=== PATIENT | female | born 1955 | race Hispanic/Latino ===

== ENCOUNTER → 2018-05-29 | Day surgery (SDC) | payer OTHER ==
[~2018-05-29] MED LIST: ATORVASTATIN CA10 MG PO; CLOTRIMAZOLE-BE15 GM TOP; FARXIGA PO; FENTANYL CITRATE/PF 100MCG/2 ML INJ ONE; FERROCITE324 MG PO; FOLATE PO; FOLIC ACID1 MG PO; GABAPENTIN300 MG PO; GLYBURIDE-METF1 EAC1 PO; JANUVIA100 MG PO; MAGNESIUM500 MG PO; OMEPRAZOLE40 MG PO; PROPOFOL IV EMULSION 10 MG/ML 50 ML VIAL ONE; VITAMIN D35000 UNIT PO; ZETIA10 MG PO
[2018-05-29 10:25] VITALS: BP 124/75
== END | disposition home or self-care (01) ==
LOC: OR 06:11
PROVIDERS: ATTEND Internal Medicine Gastroenterology
DX: D50.9 Iron deficiency anemia, unspecified (principal); K31.819 Angiodysplasia of stomach and duodenum without bleeding; K44.9 Diaphragmatic hernia without obstruction or gangrene; E66.9 Obesity, unspecified; Z71.3 Dietary counseling and surveillance; I10 Essential (primary) hypertension; E11.9 Type 2 diabetes mellitus without complications; Z01.810 Encounter for preprocedural cardiovascular examination; Z79.84 Long term (current) use of oral hypoglycemic drugs; Z68.31 Body mass index [BMI] 31.0-31.9, adult
CPT/HCPCS: 36415; 43235; 43270; 82948; 93005

== ENCOUNTER 2019-06-18 18:16 | Emergency (ER) | payer OTHER ==
[~2019-06-18] VITALS: Ht 154.9 cm; Wt 77.6 kg
[~2019-06-18 18:16] MED LIST changes: -FENTANYL CITRATE/PF 100MCG/2 ML INJ ONE; -PROPOFOL IV EMULSION 10 MG/ML 50 ML VIAL ONE
--- OUTSIDE RECORDS SUMMARY | 2019-06-18 18:19 | XMS REPORT ---
Author Author [facility] Address Unknown Phone Unavailable Care Team Providers Care Cuff Folder Name Role Phone Unavailable Unavailable Problems This patient has no known problems. Allergies, Adverse Reactions, Alerts This patient has no known allergies or adverse reactions. Medications This patient has no known medications. Results Test Description Test Time Test Comments Text Results Atomic Results Result Comments SCR MAMM BILATERAL JUSTO CAD DIGITAL 2019-04-08 09:33:28 - SCR MAMM BILATERAL JUSTO CAD DIGITALBILATERAL DIGITAL SCREENING MAMMOGRAM 3D/2D WITH CAD: 04/08/2019Digital breast tomosynthesis was performed in addition to routine CC and MLO views. Current mammographic images were evaluated by either a [employer] M- Vu or a [employer] ImageChecker CAD (computer aided detection system). Comparison is made to exam dated 02/11/2017 mammogram - [facility]. There are scattered fibroglandular tissues in both breasts. There are benign calcifications in the right breast. There also is a benign calcification in the left breast. No suspicious mass, architectural distortion, malignant type calcification, or lymph node abnormality detected. Breast architecture is stable compared to prior exams.IMPRESSION: BENIGNThere is no mammographic evidence of malignancy. Resume annual screening mammography in one year. Emerson child/corey:04/08/2019 09:33:28 [employer] Treatment Plant Operator: Sadie CABA, [facility]-FWletter sent: BIRADS 1-2 Normal Mammogram BI-RADS: 2 Benign
[2019-06-18] MEDS ORDERED: PANTOPRAZOLE 40 MG 10ML VIAL IV ONE (18:31)
--- NOTE | 2019-06-18 19:11 | Diagnostic Imaging Report ---
EXAMINATION: CHEST SINGLE (PORTABLE) INDICATION: Cough. COMPARISON: None FINDINGS: TUBES and LINES: None. LUNGS: Lungs are hypoinflated. Mild patchy density in the left lung base may represent atelectasis versus less likely developing pneumonia in the proper clinical setting. PLEURA: No pleural effusion or pneumothorax. HEART AND MEDIASTINUM: The cardiomediastinal silhouette is unremarkable. BONES AND SOFT TISSUES: No acute osseous lesion. Soft tissues are unremarkable. UPPER ABDOMEN: No free air under the diaphragm. IMPRESSION: Mild patchy density in the left lung base may represent atelectasis versus less likely developing pneumonia in the proper clinical setting. Signed by: Dr. Minnie Bahena M.D. on 06/18/2019 7:08 PM
[2019-06-18 19:21] LABS: BASOPHILS % 0.3 % (0.0-1.0); EOSINOPHILS % 0.2 % (0.0-6.0); HEMOGLOBIN 7.5 g/dL (12.0-16.0); LYMPHOCYTES # (AUTO) 2.1 (1.0-3.2); LYMPHOCYTES % 21.7 % (18.0-39.1); MEAN CORPUSCULAR HEMOGLOBIN 23.7 pg (28-32); MEAN CORPUSCULAR HGB CONC 26.8 g/dL (31-35); MEAN CORPUSCULAR VOLUME 88.6 fL (81-99); MONOCYTES # (AUTO) 0.6 (0.2-0.8); MONOCYTES % 5.6 % (4.4-11.3); NEUTROPHILS % 71.7 % (38.7-80.0); PLATELET COUNT 235 x10e3/uL (140-360); RED BLOOD COUNT 3.16 x10e6/uL (3.6-5.1); RED CELL DISTRIBUTION WIDTH 14.3 % (11.7-14.4)
[2019-06-18 19:29] LABS: INR 0.9; PARTIAL THROMBOPLASTIN TIME 25.8 seconds (23.8-35.5); PROTHROMBIN TIME 12.6 seconds (11.9-14.5)
[2019-06-18 19:38] LABS: ALANINE AMINOTRANSFERASE 55 IU/L (0-55); ALBUMIN 3.3 g/dL (3.5-5.0); ALBUMIN/GLOBULIN RATIO 0.8 (0.8-2.0); ALKALINE PHOSPHATASE 235 IU/L (40-150); ANION GAP 16.6 mmol/L (8-16); BLOOD UREA NITROGEN 11 mg/dL (7-26); BUN/CREATININE RATIO 14 (6-25); CALCIUM 9.6 mg/dL (8.4-10.2); CARBON DIOXIDE 22 mmol/L (22-29); CHLORIDE 105 mmol/L (98-107); CREATINE KINASE 37 IU/L (29-168); CREATININE, SERUM 0.77 mg/dL (0.57-1.11); EST GLOMERULAR FILTRATION RATE > 60 ML/MIN (60-); GLUCOSE 281 mg/dL (74-118); POTASSIUM 4.6 mmol/L (3.5-5.1); SODIUM 139 mmol/L (136-145)
[2019-06-18 19:55] LABS: BILIRUBIN,URINE NEGATIVE (NEGATIVE); CLARITY,URINE SL CLOUDY (CLEAR); COLOR,URINE YELLOW (YELLOW); KETONES,URINE NEGATIVE (NEGATIVE); LEUKOCYTE ESTERASE ,URINE NEGATIVE (NEGATIVE); NITRITE,URINE NEGATIVE (NEGATIVE); PROTEIN,URINE DIPSTICK NEGATIVE (NEGATIVE); URINE UROBILINOGEN 0.2 mg/dL (0.2 - 1)
[2019-06-18 20:10] LABS: BACTERIA,URINE MANY /HPF; EPITHELIAL CELLS,URINE MODERATE /LPF
[2019-06-18] MEDS ORDERED: FERROUS SULFAT325 MG PO (20:50)
[2019-06-18] MEDS ORDERED: COLACE100 MG PO (20:50)
[2019-06-18 21:24] VITALS: BP 111/58
== END 2019-06-18 21:44 | disposition home or self-care (01) ==
LOC: ER 18:16
DX: D50.0 Iron deficiency anemia secondary to blood loss (chronic) (principal); E11.65 Type 2 diabetes mellitus with hyperglycemia; R53.1 Weakness; E78.5 Hyperlipidemia, unspecified; K21.9 Gastro-esophageal reflux disease without esophagitis
CPT/HCPCS: 36415; 71045; 80053; 81001; 82550; 82553; 83880; 84484; 85025; 85610; 85730; 86850; 86900; 87086; 87186; 93005; 99284; C9113

== ENCOUNTER 2019-06-19 16:56 | Inpatient (IN) | payer OTHER ==
[~2019-06-19] VITALS: Ht 154.9 cm; Wt 77.6 kg
[~2019-06-19 16:56] MED LIST changes: +COLACE100 MG PO; +FERROUS SULFAT325 MG PO; +LIDOCAINE HCL 2% LOCAL INJ 5 ML SDV VIAL INJ ONE; +PROPOFOL IV EMULSION 10 MG/ML 50 ML VIAL ONE
--- NOTE | 2019-06-19 19:00 | NUR ---
DIRECT ADMISSION CAME FROM DR.V QUINTANA'S OFFICE.ASSESSMENT DONE.NO RESP.DISTRESS.NO PAIN VOICED.NC O2 2LITRE STARTED.AAOX4.ORIENTED TO THE UNIT.BED LOCKED AN DIN LOWEST POSITION.PHONE AND CALL LIGHT WITHIN REACH.INSTRUCTED TO CALL FOR ASSISTANCE NEEDED.CONSULTS CALLED.CARRIED OUT THE ORDERS.
[2019-06-19 19:25] VITALS: BP 115/56
[2019-06-19 20:23] LABS: BASOPHILS % 0.2 % (0.0-1.0); EOSINOPHILS # (AUTO) 0.1 (0.0-0.4); EOSINOPHILS % 2.6 % (0.0-6.0); LYMPHOCYTES # (AUTO) 1.7 (1.0-3.2); LYMPHOCYTES % 37.2 % (18.0-39.1); MEAN CORPUSCULAR HEMOGLOBIN 23.6 pg (28-32); MEAN CORPUSCULAR HGB CONC 27.2 g/dL (31-35); MEAN CORPUSCULAR VOLUME 86.8 fL (81-99); MONOCYTES # (AUTO) 0.3 (0.2-0.8); MONOCYTES % 6.5 % (4.4-11.3); NEUTROPHILS # (AUTO) 2.5 (2.1-6.9); NEUTROPHILS % 53.3 % (38.7-80.0); PLATELET COUNT 224 x10e3/uL (140-360); RED BLOOD COUNT 2.88 x10e6/uL (3.6-5.1); RED CELL DISTRIBUTION WIDTH 14.6 % (11.7-14.4)
[2019-06-19 20:30] LABS: HEMOGLOBIN 6.8 g/dL (12.0-16.0)
[2019-06-19 20:33] LABS: INR 0.9; PARTIAL THROMBOPLASTIN TIME 26.9 seconds (23.8-35.5); PROTHROMBIN TIME 12.6 seconds (11.9-14.5)
[2019-06-19 20:40] LABS: ALANINE AMINOTRANSFERASE 45 IU/L (0-55); ALBUMIN 2.9 g/dL (3.5-5.0); ALBUMIN/GLOBULIN RATIO 0.8 (0.8-2.0); ALKALINE PHOSPHATASE 186 IU/L (40-150); ANION GAP 11.4 mmol/L (8-16); BLOOD UREA NITROGEN 12 mg/dL (7-26); BUN/CREATININE RATIO 17 (6-25); CALCIUM 8.9 mg/dL (8.4-10.2); CARBON DIOXIDE 25 mmol/L (22-29); CHLORIDE 105 mmol/L (98-107); CREATININE, SERUM 0.69 mg/dL (0.57-1.11); EST GLOMERULAR FILTRATION RATE > 60 ML/MIN (60-); GLUCOSE 87 mg/dL (74-118); POTASSIUM 3.4 mmol/L (3.5-5.1); SODIUM 138 mmol/L (136-145)
[2019-06-19 20:41] LABS: CHOL/HDL RATIO 2.3 (3.0-3.6)
[2019-06-19] MEDS ORDERED: SODIUM CHLORIDE 0.9% 250ML 250 ML IV ONE (20:45)
[2019-06-19 21:00] VITALS: BP 115/56
[2019-06-19 21:03] LABS: FREE THYROXINE INDEX 1.5438 (1.4-3.8); THYROID STIMULATING HORMONE 1.391 uIU/mL (0.350-4.940)
[2019-06-19] MEDS: CEFTRIAXONE SOD 1 GM/NS 50 ML 50 ML IV SCH (21:10)
[2019-06-19] MEDS: ATORVASTATIN 10 MG TAB PO SCH (21:20)
[2019-06-19 21:52] VITALS: BP 115/56
--- NOTE | 2019-06-19 22:17 | Diagnostic Imaging Report ---
EXAMINATION: CHEST 2 VIEWS INDICATION: Anemia COMPARISON: Chest radiograph 06/18/2019 FINDINGS: PA and lateral views TUBES and LINES: None. LUNGS: Lungs are well inflated. Lungs are clear. There is no evidence of pneumonia or pulmonary edema. PLEURA: No pleural effusion or pneumothorax. HEART AND MEDIASTINUM: The cardiomediastinal silhouette is nonenlarged. Aortic arch calcifications. BONES AND SOFT TISSUES: No acute osseous lesion. Soft tissues are unremarkable. Degenerative changes in the spine. UPPER ABDOMEN: No free air under the diaphragm. IMPRESSION: No acute thoracic radiographic abnormality. Signed by: Paul Jeffries DO on 06/19/2019 10:14 PM
--- NOTE | 2019-06-19 23:00 | NUR ---
V/S STABLE.BLOOD TRANSFUSION STARTED AFTER VERIFY WITH ANOTHER RN .STAYED WITH PT FOR 15 MTS.NO REACTION NOTED.KEEP MONITOR THE PT.
[2019-06-20] VITALS (8 sets, daily range): BP systolic 107–149; BP diastolic 52–75
--- NOTE | 2019-06-20 00:40 | NUR ---
is in the unit to see the patient.received new orders.
[2019-06-20 00:58] LABS: BILIRUBIN,URINE NEGATIVE (NEGATIVE); CLARITY,URINE CLOUDY (CLEAR); COLOR,URINE YELLOW (YELLOW); KETONES,URINE NEGATIVE (NEGATIVE); LEUKOCYTE ESTERASE ,URINE SMALL (NEGATIVE); NITRITE,URINE NEGATIVE (NEGATIVE); PROTEIN,URINE DIPSTICK NEGATIVE (NEGATIVE); URINE UROBILINOGEN 0.2 mg/dL (0.2 - 1)
--- NOTE | 2019-06-20 01:10 | NUR ---
urine collected in aseptic technique and sent to the lab.
[2019-06-20 01:11] LABS: WBC,URINE (MAN) >50 /HPF (0-5)
[2019-06-20 01:12] LABS: BACTERIA,URINE MANY /HPF; EPITHELIAL CELLS,URINE FEW /LPF
--- NOTE | 2019-06-20 02:30 | NUR ---
First unit of blood completed.pt tolerated well.v/s stable.
--- NOTE | 2019-06-20 05:22 | NUR ---
VITAL SIGNS STABLE.SECOND UNITS OF BLOOD STARTED WITH VERIFICATION OF ANOTHER RN.KEEP MONITOR THE PT.
[2019-06-20 05:31] LABS: BASOPHILS % 0.2 % (0.0-1.0); EOSINOPHILS # (AUTO) 0.2 (0.0-0.4); HEMATOCRIT 26.5 % (34.2-44.1); HEMOGLOBIN 7.6 g/dL (12.0-16.0); LYMPHOCYTES # (AUTO) 2.4 (1.0-3.2); LYMPHOCYTES % 45.1 % (18.0-39.1); MEAN CORPUSCULAR HEMOGLOBIN 24.4 pg (28-32); MEAN CORPUSCULAR HGB CONC 28.7 g/dL (31-35); MEAN CORPUSCULAR VOLUME 85.2 fL (81-99); MONOCYTES # (AUTO) 0.4 (0.2-0.8); MONOCYTES % 7.8 % (4.4-11.3); NEUTROPHILS # (AUTO) 2.3 (2.1-6.9); NEUTROPHILS % 43.5 % (38.7-80.0); PLATELET COUNT 212 x10e3/uL (140-360); RED BLOOD COUNT 3.11 x10e6/uL (3.6-5.1); RED CELL DISTRIBUTION WIDTH 15.4 % (11.7-14.4)
--- NOTE | 2019-06-20 07:02 | NUR ---
Bed side shift report given to the oncoming Rn.stable condition.
--- NOTE | 2019-06-20 07:30 | NUR ---
Received patient this morning, a/ox3, PRBC running at this time, no resp distress, call light within reach, will monitor.
[2019-06-20 07:34] LABS: PLATELET ESTIMATE ADEQUATE; PLATELET MORPHOLOGY COMMENT NORMAL; RBC MORPHOLOGY COMMENT ABNORMAL
[2019-06-20 07:35] LABS: ANISOCYTOSIS SLIGHT; HYPOCHROMASIA MODERATE
--- NOTE | 2019-06-20 08:15 | NUR ---
Blood transfusion completed at this time, no reaction noted, VSS and no c/o pains.
[2019-06-20] MEDS: FARXIGA 10MG PO SCH (08:54)
[2019-06-20] MEDS: EZETIMIBE 10 MG TAB PO SCH (08:54)
[2019-06-20] MEDS: METFORMIN HCL 500 MG TAB PO SCH ×2 (08:54→16:53)
[2019-06-20] MEDS: PANTOPRAZOLE 40 MG 10ML VIAL IV SCH ×2 (08:54→16:53)
[2019-06-20] MEDS: FOLIC ACID 1 MG TAB PO SCH (08:54)
[2019-06-20] MEDS: GLYBURIDE 5 MG TAB PO SCH (08:54)
[2019-06-20] MEDS ORDERED: NON-FORMULARY MEDICATION PO SCH (09:00)
[2019-06-20] MEDS ORDERED: FARXIGA 5 MG PO SCH (09:00)
[2019-06-20 10:28] LABS: BASOPHILS % 0.2 % (0.0-1.0); EOSINOPHILS # (AUTO) 0.1 (0.0-0.4); EOSINOPHILS % 2.6 % (0.0-6.0); HEMATOCRIT 30.1 % (34.2-44.1); HEMOGLOBIN 8.6 g/dL (12.0-16.0); LYMPHOCYTES # (AUTO) 1.7 (1.0-3.2); LYMPHOCYTES % 36.2 % (18.0-39.1); MEAN CORPUSCULAR HEMOGLOBIN 24.7 pg (28-32); MEAN CORPUSCULAR HGB CONC 28.6 g/dL (31-35); MEAN CORPUSCULAR VOLUME 86.5 fL (81-99); MONOCYTES # (AUTO) 0.4 (0.2-0.8); MONOCYTES % 7.9 % (4.4-11.3); NEUTROPHILS # (AUTO) 2.4 (2.1-6.9); NEUTROPHILS % 52.9 % (38.7-80.0); PLATELET COUNT 210 x10e3/uL (140-360); RED BLOOD COUNT 3.48 x10e6/uL (3.6-5.1); RED CELL DISTRIBUTION WIDTH 15.1 % (11.7-14.4)
[2019-06-20 10:53] LABS: PLATELET ESTIMATE ADEQUATE; PLATELET MORPHOLOGY COMMENT NORMAL
[2019-06-20 10:54] LABS: HYPOCHROMASIA SLIGHT; RBC MORPHOLOGY COMMENT ABNORMAL
--- NOTE | 2019-06-20 12:00 | NUR ---
Pre-op called asking if patient was ready for procedure, there have not been orders for a procedure entered. Pre-op Nurse will get back to physician for further directions.
--- NOTE | 2019-06-20 13:10 | NUR ---
Call back if patient is ready and patient not ready due to had lunch. Will get back to surgeon
[2019-06-20] MEDS ORDERED: ACETAMINOPHEN 325 MG TAB PO PRN (13:45)
[2019-06-20] MEDS ORDERED: DEXTROSE 50% SYRINGE 50 ML IV PRN (13:45)
[2019-06-20] MEDS ORDERED: LACTULOSE SYRUP 20 GM/30 ML UDC PO NR (14:00)
[2019-06-20] MEDS: INSULIN LISPRO 100 UNIT/1 ML 3ML VIAL SQ SCH ×2 (16:30→20:29)
--- NOTE | 2019-06-20 19:00 | NUR ---
Bed side shift report taken from morning Rn.pt is lyeing in the bed.stable condition.
--- NOTE | 2019-06-20 20:21 | History and Physical ---
PRESENTING COMPLAINT: Epigastric pain with nausea and vomiting, found having critical anemia with generalized weakness. HISTORY OF PRESENT ILLNESS: A 63-year-old female who was admitted from the office of Dr. Shiraz Aquino yesterday. The patient tells that she was seen in the ER at this hospital last week when she had epigastric discomfort. The patient was evaluated at the ER and sent home after evaluation. She had persisting symptoms, for which she went to see Dr. Shiraz Aquino yesterday. The patient was found having critical anemia of 7.1. The patient was directly admitted from his office. The patient tells that she was feeling dizziness with weakness along with these symptoms. She had vomited two times prior to yesterday. Vomitus did not contain any blood. She had dark stool, but denied any episodes of darya bloody stool or black tarry stools. The patient had EGD last year at this hospital by Dr. Pizano. The patient was found having gastric angioectasia and hiatal hernia. Duodenal finding did not show any ulceration at that time. The patient was not on any anticoagulant or antiplatelet medication as per her statement. REVIEW OF SYSTEMS: CONSTITUTIONAL: No fevers, chills, or rigor. The patient felt generalized weakness yesterday. EYE AND ENT: No visual disturbance. No nasal congestion. No earache. CARDIOVASCULAR: No chest pain, shortness of breath, or palpitation. PULMONARY: No cough or hemoptysis. GI: Epigastric discomfort as per HPI. Vomiting 2 times at home. No passage of bloody stool or vomitus and dark stool as per patient's statement. No black stool as per the patient's statement. Last bowel movement 2 days ago. : No hematuria or dysuria. No abnormal vaginal bleeding. MUSCULOSKELETAL/SKIN/LYMPHORETICULAR: No joint pain. No joint swelling. No skin rash. No swelling. NEUROLOGIC: No loss of consciousness, seizure, or headache. The patient felt dizzy yesterday as per her statement. PAST MEDICAL HISTORY: Illnesses: 1. Type 2 diabetes mellitus. 2. Hypertension. 3. Hyperlipidemia. 4. Iron deficiency anemia. 5. Hiatal hernia. 6. Gastric angioectasia. 7. The patient tells that she had a history of lor-UO-qfsduxcsm acute OR about 5 years ago, when she was hospitalized at [facility]. PAST SURGICAL HISTORY: The patient had EGD done last year at this hospital by Dr. Pizano and tonsillectomy in childhood. No other history of surgery. ALLERGIES: NO KNOWN MEDICATION ALLERGY. HOME MEDICATIONS: List includes: 1. Dulcolax suppository p.r.n. 2. Tizanidine 2 mg t.i.d. p.r.n. 3. Maywood-3 capsule b.i.d. 4. Ferrous sulfate 325 mg daily. 5. Voltaren gel every 12 hours. 6. Omeprazole 40 mg daily. 7. Vitamin D 5000 units capsule daily. 8. Folic acid 1 mg daily. 9. Gabapentin 300 mg at bedtime. 10. Zetia 10 mg daily. 11. Acarbose 25 mg t.i.d. 12. Atorvastatin 10 mg at bedtime. 13. Glyburide-metformin 5/500 mg two tablets b.i.d. 14. Farxiga 10 mg daily. 15. Tradjenta 5 mg daily. SOCIAL HISTORY: The patient lives at home at [place] with her boyfriend. She has adult children, total 6. She is not currently working. She used to work in a restaurant in the past. HABITS: Denies smoking, drinking, or substance abuse history. FAMILY HISTORY: The patient's father of COPD complications. Mother is for unknown cause. Her siblings are alive. She is not in contact with them. No family history of GI bleeding as per patient's statement. PHYSICAL EXAMINATION: VITAL SIGNS: Today, BP 107/52, pulse 72, temp 97, respirations 17, SpO2 99% at room air. GENERAL: Alert, not in acute distress now, feeling better than yesterday. HEENT: NC/AT. Mild pallor. No icterus. Oral mucosa moist. NECK: No JVD. No carotid bruit. No lymphadenopathy. No thyromegaly. HEART: S1, S2. Regular. No murmur. LUNGS: Clear to auscultation. ABDOMEN: Soft, nontender. No palpable mass. Bowel sounds active in all quadrants. EXTREMITIES: No edema or cyanosis. NEUROLOGIC: Motor grossly equal on both sides. LABORATORY DATA: CBC; WBC 4.6, hemoglobin 6.8 at presentation, now 8.6, hematocrit 25 and came up to 30 today, MCV 86, RDW 14, platelet 224, neutrophils 53, lymphocytes 37. PT 12.6, INR 0.9, PTT 26.9. Chemistry panel; sodium 138, potassium 3.4, chloride 105, CO2 25, BUN 12, creatinine 0.69, glucose 87, calcium 8.9. Total bilirubin 0.2, AST 52, ALT 45, alkaline phosphatase 186. Total protein 6.6, albumin 2.9, globulin 3.9. Total cholesterol 89, LDL 26, HDL 39, triglycerides 122. Vitamin B12 766. TSH 1.39, free T4 1.54. Urinalysis this presentation negative for protein, glucose, ketone, wbc more than 50, rbc 11-20, bacteria many. MICROBIOLOGICAL DATA: Urine culture in progress. RADIOLOGICAL DATA: X-ray chest single view, no acute abnormality detected. EKG not done. ASSESSMENT AND PLAN: 1. Critical anemia and normocytic. The patient had a similar episode last year when she had an EGD. Continue the patient on PPI. The patient is on Protonix IV and now follow up with Gastroenterology. Dr. Atkinson has evaluated the patient last night. The patient would need an EGD, was not scheduled for today. The patient is started on a clear liquid diet. We would continue clear liquid diet for now. Check stool for occult blood. 2. Hiatal hernia with gastric angiectasia on EGD last year. Follow EGD report. Continue PPI. 3. Diabetes mellitus type 2. Continue her regular medication. Hold metformin for now. 4. Abnormal LFTs. Ask for an ultrasound abdomen when available. 5. Hyperlipidemia. Continue regular medication. 6. History of anj-HQ-uqyudyrbi OR as per patient's statement, was asked for an EKG. The patient does not have any chest pain, or symptoms suggestive of cardiac ailments. Can check troponin I with next lab, was not checked yesterday. 7. DVT prophylaxis. We would hold anticoagulation, encourage ambulation. Discharge plan would depend upon the patient's hospital course and recommendation by the industrial maintenance mechanic. MD ANJALI Garza/HARDIK /[id number]
[2019-06-20] MEDS: GABAPENTIN 300 MG CAP PO SCH (20:29)
[2019-06-20] MEDS: CEFTRIAXONE SOD 1 GM/NS 50 ML 50 ML IV SCH (20:29)
[2019-06-20] MEDS: ATORVASTATIN 10 MG TAB PO SCH (20:56)
[2019-06-20] MEDS ORDERED: ATORVASTATIN 10 MG TAB PO SCH (21:00)
--- NOTE | 2019-06-20 23:28 | NUR ---
DR. Surekha VALENTE DOING ROUNDS. NEW ORDERS RECEIVED FOR LABS IN AM.
[2019-06-21] VITALS (10 sets, daily range): BP systolic 96–136; BP diastolic 53–74
[2019-06-21] MEDS ORDERED: LACTATED RINGER'S 1,000 ML IV ONE (04:30)
--- NOTE | 2019-06-21 05:30 | NUR ---
On npo.new iv started to left hand.patent.stable condition.
[2019-06-21 06:23] LABS: BASOPHILS % 0.2 % (0.0-1.0); EOSINOPHILS # (AUTO) 0.1 (0.0-0.4); EOSINOPHILS % 2.8 % (0.0-6.0); HEMATOCRIT 31.9 % (34.2-44.1); HEMOGLOBIN 9.3 g/dL (12.0-16.0); LYMPHOCYTES % 40.2 % (18.0-39.1); MEAN CORPUSCULAR HEMOGLOBIN 25.1 pg (28-32); MEAN CORPUSCULAR HGB CONC 29.2 g/dL (31-35); MONOCYTES # (AUTO) 0.4 (0.2-0.8); MONOCYTES % 7.9 % (4.4-11.3); NEUTROPHILS # (AUTO) 2.4 (2.1-6.9); NEUTROPHILS % 48.7 % (38.7-80.0); PLATELET COUNT 218 x10e3/uL (140-360); RED BLOOD COUNT 3.71 x10e6/uL (3.6-5.1); RED CELL DISTRIBUTION WIDTH 15.3 % (11.7-14.4)
[2019-06-21 06:45] LABS: ALANINE AMINOTRANSFERASE 44 IU/L (0-55); ALBUMIN 2.8 g/dL (3.5-5.0); ALBUMIN/GLOBULIN RATIO 0.8 (0.8-2.0); ALKALINE PHOSPHATASE 159 IU/L (40-150); ANION GAP 9.4 mmol/L (8-16); BLOOD UREA NITROGEN 7 mg/dL (7-26); BUN/CREATININE RATIO 12 (6-25); CALCIUM 8.8 mg/dL (8.4-10.2); CARBON DIOXIDE 26 mmol/L (22-29); CHLORIDE 106 mmol/L (98-107); CREATININE, SERUM 0.59 mg/dL (0.57-1.11); EST GLOMERULAR FILTRATION RATE > 60 ML/MIN (60-); GLUCOSE 77 mg/dL (74-118); LIPASE 18 U/L (8-78); POTASSIUM 3.4 mmol/L (3.5-5.1); SODIUM 138 mmol/L (136-145)
--- NOTE | 2019-06-21 07:00 | NUR ---
Bed side shift report given to the oncoming Rn.stable condition.
--- NOTE | 2019-06-21 07:00 | NUR ---
RECEIVED PATIENT RESTING IN BED NO SIGNS OF DISTRESS. BED LOW, WHEELS LOCKED, SIDE RAILS X2, CALL LIGHT IN REACH. WILL CONTINUE TO MONITOR PATIENT.
--- NOTE | 2019-06-21 07:11 | NUR ---
PATIENT LEFT FOR EGD AT THIS TIME.
[2019-06-21 07:20] LABS: FERRITIN 39.04 ng/mL (4.63-204.00)
[2019-06-21] MEDS: INSULIN LISPRO 100 UNIT/1 ML 3ML VIAL SQ SCH ×4 (07:30→20:23)
[2019-06-21] MEDS ORDERED: ONDANSETRON HCL INJ 2MG/ML 2ML 2 MG/ML VIAL ONE (08:21)
[2019-06-21] MEDS ORDERED: PANTOPRAZOLE 40 MG 10ML VIAL IV NR (08:30)
[2019-06-21] MEDS ORDERED: GLYCOPYRROLATE 0.2 MG/ML VIAL ONE (08:57)
[2019-06-21] MEDS ORDERED: EZETIMIBE 10 MG TAB PO SCH (09:00)
[2019-06-21] MEDS ORDERED: FOLIC ACID 1 MG TAB PO SCH (09:00)
[2019-06-21] MEDS: FARXIGA 10MG PO SCH (09:00)
--- NOTE | 2019-06-21 09:17 | NUR ---
PATIENT BACK FROM EGD. NO SIGNS OF DISTRESS. VS STABLE. PATIENT COMPLAINT OF FEELING BLOATED. INFORMED PATIENT TO AMBULATE TO HELP PASS GAS. MORNING MEDICATIONS GIVEN. PATIENT NOW ON ADA DIET. WILL CONTINUE TO MONITOR PATIENT.
[2019-06-21] MEDS: SITAGLIPTIN 100 MG TAB PO SCH (10:05)
[2019-06-21] MEDS: FOLIC ACID 1 MG TAB PO SCH (10:05)
[2019-06-21] MEDS: METFORMIN HCL 500 MG TAB PO SCH ×2 (10:05→17:12)
[2019-06-21] MEDS: EZETIMIBE 10 MG TAB PO SCH (10:05)
[2019-06-21] MEDS: GLYBURIDE 5 MG TAB PO SCH (10:05)
[2019-06-21] MEDS ORDERED: SODIUM CHLORIDE 0.9% 250ML 250 ML ONE (10:20)
[2019-06-21] MEDS: IRON SUCROSE 100 MG in SODIUM CHLORIDE 0.9% 100 ML 100 ML IV SCH (10:33)
[2019-06-21] MEDS: PANTOPRAZOL 40MG/SOD CHL 0.9% 50 ML IV SCH ×3 (11:19→19:57)
[2019-06-21] MEDS: SUCRALFATE 1 GM TAB PO SCH ×3 (11:50→20:22)
[2019-06-21] MEDS ORDERED: POTASSIUM CHLORIDE 20 MEQ TAB CR PO NR (13:21)
[2019-06-21] MEDS ORDERED: MIDAZOLAM HCL 2 MG/2 ML VIAL ONE (14:28)
--- NOTE | 2019-06-21 19:00 | NUR ---
Bed side shift report taken from morning RnMikel in the bed.stable condition.no pain voiced.
[2019-06-21] MEDS: GABAPENTIN 300 MG CAP PO SCH (20:22)
[2019-06-21] MEDS: CEFTRIAXONE SOD 1 GM/NS 50 ML 50 ML IV SCH (20:22)
[2019-06-21] MEDS: ATORVASTATIN 10 MG TAB PO SCH (20:22)
--- NOTE | 2019-06-21 22:16 | NUR ---
Assessment done. protonix running 10ml/hr to left hand.bed locked and in lowest position.phone and call light within reach.instructed to call for assistance as needed.
[2019-06-22 00:30] VITALS: BP 119/63
[2019-06-22] MEDS: PANTOPRAZOL 40MG/SOD CHL 0.9% 50 ML IV SCH ×2 (00:57→05:55)
--- NOTE | 2019-06-22 02:57 | Operative Report ---
DATE OF PROCEDURE: 06/21/2019 SURGEON: Kenji Atkinson MD PROCEDURE: Esophagogastroduodenoscopy with fulguration with the APC probe of gastric antral vascular ectasia. INDICATIONS FOR PROCEDURES: Iron deficiency anemia. MEDICATIONS: The patient was done under MAC, please see anesthesiologist's note. PROCEDURE IN DETAIL: With the patient in left lateral decubitus position, a flexible fiberoptic Olympus gastroscope was introduced into the esophagus under direct visualization without any difficulty. Mucosa overlying the distal esophagus revealed some patchy areas of erythema. The scope was then advanced with ease into the stomach, traversing a small sliding hiatal hernia. Gastric antral vascular ectasia type changes were noted in the antrum and watermelon stomach type configuration. The pylorus was of normal contour and shape, it was intubated with ease and the scope was advanced all the way to the second portion of the duodenum. The scope was then withdrawn slowly. Mucosa overlying the proximal second portion and duodenal bulb appeared to be within normal limits. The scope was then withdrawn back into the stomach and retroflexed. Mucosa overlying the fundus and the cardia appeared to be within normal limits. There were some minimal ecstatic vessels noted in the cardia and the fundus. The scope was then straightened out and extensive fulguration of the APC probe was carried out in the antrum. Good hemostasis was obtained. The scope was subsequently withdrawn. The patient tolerated the procedure well. IMPRESSION: 1. Distal esophagitis, mild. 2. Small sliding hiatal hernia. 3. Gastric antral vascular ectasia. Fulguration was carried out with the APC probe. The patient tolerated the procedure well. PLAN: Augment current PPI regimen. We will add Carafate 1 g p.o. a.c. t.i.d. and at bedtime. Follow H and H. Kenji Atkinson [place] [facility] [place][id number] cc: Alaina Aquino Dr.
[2019-06-22 04:58] VITALS: BP 109/61
[2019-06-22 06:12] LABS: BASOPHILS % 0.2 % (0.0-1.0); EOSINOPHILS # (AUTO) 0.1 (0.0-0.4); EOSINOPHILS % 2.1 % (0.0-6.0); HEMATOCRIT 31.5 % (34.2-44.1); LYMPHOCYTES # (AUTO) 1.9 (1.0-3.2); LYMPHOCYTES % 32.8 % (18.0-39.1); MEAN CORPUSCULAR HEMOGLOBIN 24.7 pg (28-32); MEAN CORPUSCULAR HGB CONC 28.6 g/dL (31-35); MEAN CORPUSCULAR VOLUME 86.3 fL (81-99); MONOCYTES # (AUTO) 0.5 (0.2-0.8); MONOCYTES % 7.8 % (4.4-11.3); NEUTROPHILS # (AUTO) 3.3 (2.1-6.9); NEUTROPHILS % 56.9 % (38.7-80.0); PLATELET COUNT 215 x10e3/uL (140-360); RED BLOOD COUNT 3.65 x10e6/uL (3.6-5.1)
[2019-06-22 06:35] LABS: ALANINE AMINOTRANSFERASE 37 IU/L (0-55); ALBUMIN 2.6 g/dL (3.5-5.0); ALBUMIN/GLOBULIN RATIO 0.8 (0.8-2.0); ALKALINE PHOSPHATASE 153 IU/L (40-150); ANION GAP 9.6 mmol/L (8-16); BLOOD UREA NITROGEN 9 mg/dL (7-26); BUN/CREATININE RATIO 14 (6-25); CALCIUM 8.7 mg/dL (8.4-10.2); CARBON DIOXIDE 27 mmol/L (22-29); CHLORIDE 107 mmol/L (98-107); CREATININE, SERUM 0.66 mg/dL (0.57-1.11); EST GLOMERULAR FILTRATION RATE > 60 ML/MIN (60-); GLUCOSE 87 mg/dL (74-118); MAGNESIUM 1.8 MG/DL (1.3-2.1); POTASSIUM 3.6 mmol/L (3.5-5.1); SODIUM 140 mmol/L (136-145)
--- NOTE | 2019-06-22 07:00 | NUR ---
Bed side shift report given to the oncoming Rn.stable condition.
[2019-06-22] MEDS: INSULIN LISPRO 100 UNIT/1 ML 3ML VIAL SQ SCH (07:30)
[2019-06-22 07:54] VITALS: BP 107/61
[2019-06-22] MEDS: FARXIGA 10MG PO SCH (09:00)
[2019-06-22] MEDS: SUCRALFATE 1 GM TAB PO SCH (09:28)
[2019-06-22] MEDS: GLYBURIDE 5 MG TAB PO SCH (09:28)
[2019-06-22] MEDS: IRON SUCROSE 100 MG in SODIUM CHLORIDE 0.9% 100 ML 100 ML IV SCH (09:28)
[2019-06-22] MEDS: FOLIC ACID 1 MG TAB PO SCH (09:29)
[2019-06-22] MEDS: METFORMIN HCL 500 MG TAB PO SCH (09:29)
[2019-06-22] MEDS: EZETIMIBE 10 MG TAB PO SCH (09:29)
[2019-06-22] MEDS: SITAGLIPTIN 100 MG TAB PO SCH (09:29)
[2019-06-22 11:57] VITALS: BP 100/51
--- NOTE | 2019-06-22 12:45 | Diagnostic Imaging Report ---
EXAM: US ABDOMEN COMPLETE DATE: 06/22/2019 12:00 AM INDICATION: Abnormal liver function tests COMPARISON: Abdominal ultrasound of 01/31/2017 TECHNIQUE: Transverse and longitudinal davis scale and color doppler sonographic images of the upper abdomen were obtained. FINDINGS: There is no evidence of fluid or masses seen in the area of clinical concern in the right lower quadrant. LIVER 15.2 cm in the right midclavicular line. Normal echogenicity of the liver with mildly nodular surface contour, no masses. SPLEEN 11.4 cm in maximum diameter. Normal echogenicity, no masses. GALLBLADDER Small amount of sludge in the gallbladder. No gallbladder wall thickening, distension, stone, or pericholecystic fluid. Negative reported sonographic Peacock's sign. Gallbladder wall measures 4 mm BILE DUCTS No intra nor extra-hepatic biliary dilation. Common bile duct measures 6 mm PANCREAS: Visualized portions are normal. RIGHT KIDNEY: 10.2 cm Echogenicity: Normal Collecting System: No hydronephrosis Stones: None Cyst/Mass: 8 x 9 x 6 mm anechoic cyst at the right midpole. LEFT KIDNEY: 10.2 cm Echogenicity: Normal Collecting System: No hydronephrosis Stones: None Cyst/Mass: None VESSELS: Aorta: Visualized portions are within normal size limits Inferior Vena Cava: Visualized portions are normal Main Portal Vein: 1.0 cm, normal size with hepatopetal flow. FREE FLUID: None IMPRESSION: Small amount of sludge in the gallbladder. No sonographic evidence of cholecystitis. Mildly nodular liver surface contour compatible with early cirrhosis. Signed by: Tami Hill MD on 06/22/2019 12:42 PM
--- NOTE | 2019-06-23 01:13 | Discharge Summary ---
This is a 63-year-old female patient, presented with a chest pain, nausea, vomiting, and severe anemia and dizziness. ADMITTING IMPRESSION AND DIAGNOSES: Critical anemia with dizziness, symptomatic anemia with GI bleed and history of gastric arteriovenous malformation, angiectasia, diabetes mellitus, hypertension, hyperlipidemia. HOSPITAL COURSE SUMMARY: The patient was admitted with above diagnoses. The patient was given 2 units of packed RBC. The patient was taken to the EGD. The patient was found to have a gastric antrum angiodysplasia, that was treated with fulguration with a heater probe. The patient was given IV iron and IV Protonix. The patient also had a UTI with Klebsiella pneumoniae. The patient was given IV antibiotics, ceftriaxone. Now upon stabilization, the patient will be discharged home on iron, folic acid, Carafate, Protonix twice a day, and Macrodantin 100 mg twice a day. The patient will be followed up as outpatient. MD KENN Mann/HARDIK /[id number]
== END 2019-06-22 13:49 | disposition home or self-care (01) | DRG 378 ==
LOC: MED/SURG 18:48
PROVIDERS: ADMIT Internal Medicine; ATTEND Internal Medicine
PROC: 30233N1 Transfusion of Nonautologous Red Blood Cells into Peripheral Vein, Percutaneous Approach (ICD-10-PCS; principal; 2019-06-19)
PROC: 0D578ZZ Destruction of Stomach, Pylorus, Via Natural or Artificial Opening Endoscopic (ICD-10-PCS; 2019-06-21)
DX: K31.811 Angiodysplasia of stomach and duodenum with bleeding (principal); N39.0 Urinary tract infection, site not specified; D50.0 Iron deficiency anemia secondary to blood loss (chronic); K46.9 Unspecified abdominal hernia without obstruction or gangrene; E11.9 Type 2 diabetes mellitus without complications; E78.5 Hyperlipidemia, unspecified; I25.2 Old myocardial infarction; R94.5 Abnormal results of liver function studies; M19.90 Unspecified osteoarthritis, unspecified site; K20.9 Esophagitis, unspecified; B96.1 Klebsiella pneumoniae [K. pneumoniae] as the cause of diseases classified elsewhere
CPT/HCPCS: 36415; 43255; 71046; 76700; 80053; 80061; 81001; 82270; 82607; 82728; 82746; 82948; 83036; 83540; 83690; 83735; 83880; 84436; 84443; 84466; 84479; 84484; 85025; 85045; 85610; 85730; 86803; 86850; 86900; 86920; 87040; 87086; 87186; 93005; J0696; J1756; J2001; J2250; J2405; J7050; J7121; P9016

== ENCOUNTER → 2021-01-17 | Day surgery (SDC) | payer MEDICARE ==
[~2021-01-17] MED LIST changes: +DULCOLAX10 MG PR; -LIDOCAINE HCL 2% LOCAL INJ 5 ML SDV VIAL INJ ONE; +OMEGA 3 1,0001 EACH PO; +ONDANSETRON HCL INJ 2MG/ML 2ML 2 MG/ML VIAL ONE; +OR PHACO EYE KIT ONE; +PRECOSE50 MG PO; +PREOP PHACO EYE KIT ONE; -PROPOFOL IV EMULSION 10 MG/ML 50 ML VIAL ONE; +PROPRANOLOL HCL40 MG PO; +TRADJENTA5 MG PO; +TRIAMCINOLONE A15 G2 TOP; +VOLTAREN TOP
[2021-01-17 13:40] VITALS: BP 116/67
== END | disposition home or self-care (01) ==
LOC: OR 11:11
PROVIDERS: ATTEND Ophthalmology
DX: H25.11 Age-related nuclear cataract, right eye (principal); I10 Essential (primary) hypertension; I25.10 Atherosclerotic heart disease of native coronary artery without angina pectoris; I25.2 Old myocardial infarction; E11.9 Type 2 diabetes mellitus without complications; E78.5 Hyperlipidemia, unspecified; Z01.812 Encounter for preprocedural laboratory examination; Z20.822 Contact with and (suspected) exposure to COVID-19; Z79.84 Long term (current) use of oral hypoglycemic drugs
CPT/HCPCS: 36415; 66984; 82948; J2405; U0002; V2787

== ENCOUNTER → 2021-02-14 | Day surgery (SDC) | payer MEDICARE ==
[~2021-02-14] MED LIST changes: -ONDANSETRON HCL INJ 2MG/ML 2ML 2 MG/ML VIAL ONE
[2021-02-14 13:15] VITALS: BP 122/78
== END | disposition home or self-care (01) ==
LOC: OR 11:04
PROVIDERS: ATTEND Ophthalmology
DX: H25.12 Age-related nuclear cataract, left eye (principal); E11.9 Type 2 diabetes mellitus without complications; I25.2 Old myocardial infarction; I25.10 Atherosclerotic heart disease of native coronary artery without angina pectoris; I10 Essential (primary) hypertension; Z79.84 Long term (current) use of oral hypoglycemic drugs
CPT/HCPCS: 36415; 66984; 82948; V2787

== ENCOUNTER → 2021-12-08 | Outpatient (CLI) | payer MEDICARE ==
[~2021-12-08] MED LIST changes: -OR PHACO EYE KIT ONE; -PREOP PHACO EYE KIT ONE
== END ==
LOC: NM 07:37
PROVIDERS: ATTEND Internal Medicine
DX: K80.20 Calculus of gallbladder without cholecystitis without obstruction (principal)
CPT/HCPCS: 78227; A9537

== ENCOUNTER → 2022-05-07 | Outpatient (CLI) | payer MEDICARE | LOC: MAMMO 12:45 | PROVIDERS: ATTEND Internal Medicine | DX: Z12.31 Encounter for screening mammogram for malignant neoplasm of breast (principal); M79.672 Pain in left foot | CPT/HCPCS: 77067 ==

== ENCOUNTER → 2022-12-06 | Outpatient (CLI) | payer MEDICARE | LOC: RAD 08:01 | PROVIDERS: ATTEND Internal Medicine | DX: M75.01 Adhesive capsulitis of right shoulder (principal); R10.10 Upper abdominal pain, unspecified | CPT/HCPCS: 71046 ==

== ENCOUNTER → 2022-12-13 | Outpatient (CLI) | payer MEDICARE | LOC: DX 12:03 | PROVIDERS: ATTEND Internal Medicine | DX: M85.88 Other specified disorders of bone density and structure, other site (principal) | CPT/HCPCS: 77080 ==

== ENCOUNTER → 2023-01-09 | Outpatient (CLI) | payer MEDICARE ==
[~2023-01-09] MED LIST changes: +IOPAMIDOL 370 MG/ML 100 ML INFUS..BTL INJ ONE
[2023-01-09 09:48] LABS: CREATININE, SERUM 0.84 mg/dL (0.57-1.11)
== END ==
LOC: CT 08:46
PROVIDERS: ATTEND Internal Medicine
DX: M75.01 Adhesive capsulitis of right shoulder (principal); K85.80 Other acute pancreatitis without necrosis or infection
CPT/HCPCS: 36415; 73221; 74160; 82565; 84520; Q9967

== ENCOUNTER → 2023-02-06 | Day surgery (SDC) | payer MEDICARE, OTHER ==
[2023-02-05 12:55] LABS: BASOPHILS % 0.4 % (0.0-1.0); EOSINOPHILS # (AUTO) 0.2 (0.0-0.4); EOSINOPHILS % 2.8 % (0.0-6.0); HEMATOCRIT 38.8 % (34.2-44.1); HEMOGLOBIN 12.1 g/dL (12.0-16.0); LYMPHOCYTES # (AUTO) 1.7 (1.0-3.2); LYMPHOCYTES % 31.5 % (18.0-39.1); MEAN CORPUSCULAR HEMOGLOBIN 27.9 pg (28-32); MEAN CORPUSCULAR HGB CONC 31.2 g/dL (31-35); MEAN CORPUSCULAR VOLUME 89.4 fL (81-99); MONOCYTES # (AUTO) 0.4 (0.2-0.8); MONOCYTES % 7.3 % (4.4-11.3); NEUTROPHILS # (AUTO) 3.1 (2.1-6.9); NEUTROPHILS % 57.8 % (38.7-80.0); PLATELET COUNT 195 x10e3/uL (140-360); RED BLOOD COUNT 4.34 x10e6/uL (3.6-5.1); RED CELL DISTRIBUTION WIDTH 12.6 % (11.7-14.4)
[~2023-02-06] MED LIST changes: +EPHEDRINE SULFATE INJ 50 MG/ML VIAL ONE; +FENTANYL CITRATE/PF 100MCG/2 ML INJ ONE; +HYOSCYAMINE SULFATE 0.5 MG/ML INJ ONE; -IOPAMIDOL 370 MG/ML 100 ML INFUS..BTL INJ ONE; +IRON PO; +LACTATED RINGER'S 1,000 ML ONE; +LIDOCAINE HCL 2% LOCAL INJ 5 ML SDV VIAL INJ ONE; +LOSARTAN POTASS25 MG PO; +MELOXICAM7.5 MG PO; +PROPOFOL IV EMULSION 10 MG/ML 20 ML VIAL ONE; +PROPOFOL IV EMULSION 10 MG/ML 50 ML VIAL IV ONE; +PROPOFOL IV EMULSION 50 ML IV ONE
[2023-02-06 16:30] VITALS: BP 112/60; PULSE 66; RESP 16; O2SAT 96
[2023-02-06 17:09] LABS: INR 0.88; PROTHROMBIN TIME 12.4 seconds (11.9-14.5)
[2023-02-06 17:19] LABS: ALBUMIN 3.1 g/dL (3.5-5.0); BILIRUBIN,DIRECT 0.2 mg/dL (0.0-0.5)
== END | disposition home or self-care (01) ==
LOC: OR 10:45
PROVIDERS: ATTEND Internal Medicine Gastroenterology
DX: K29.60 Other gastritis without bleeding (principal); D12.0 Benign neoplasm of cecum; D12.3 Benign neoplasm of transverse colon; D12.5 Benign neoplasm of sigmoid colon; K29.50 Unspecified chronic gastritis without bleeding; K31.A11 Gastric intestinal metaplasia without dysplasia, involving the antrum; K31.819 Angiodysplasia of stomach and duodenum without bleeding; K22.89 Other specified disease of esophagus; K44.9 Diaphragmatic hernia without obstruction or gangrene; K57.30 Diverticulosis of large intestine without perforation or abscess without bleeding; K59.09 Other constipation; K64.8 Other hemorrhoids; Z71.3 Dietary counseling and surveillance; D64.89 Other specified anemias; I10 Essential (primary) hypertension; I25.2 Old myocardial infarction; E78.5 Hyperlipidemia, unspecified; E11.9 Type 2 diabetes mellitus without complications; Z01.812 Encounter for preprocedural laboratory examination; Z79.84 Long term (current) use of oral hypoglycemic drugs; Z79.899 Other long term (current) drug therapy; Z79.1 Long term (current) use of non-steroidal anti-inflammatories (NSAID); Z68.30 Body mass index [BMI] 30.0-30.9, adult
CPT/HCPCS: 36415 ×2; 43239; 43270; 45385; 80076; 82948; 85025; 85610; 88112; 88305; 88312; 88342; C9113; J1980; J2001; J2704 ×2; J3010; J7121; 43235; 45378; 45380; 88300

== ENCOUNTER → 2023-03-07 | Outpatient (CLI) | payer MEDICARE ==
[~2023-03-07] MED LIST changes: -EPHEDRINE SULFATE INJ 50 MG/ML VIAL ONE; -FENTANYL CITRATE/PF 100MCG/2 ML INJ ONE; -HYOSCYAMINE SULFATE 0.5 MG/ML INJ ONE; -LACTATED RINGER'S 1,000 ML ONE; -LIDOCAINE HCL 2% LOCAL INJ 5 ML SDV VIAL INJ ONE; -PROPOFOL IV EMULSION 10 MG/ML 20 ML VIAL ONE; -PROPOFOL IV EMULSION 10 MG/ML 50 ML VIAL IV ONE; -PROPOFOL IV EMULSION 50 ML IV ONE
== END ==
LOC: US 07:35
PROVIDERS: ATTEND Nurse Practitioner
DX: I85.00 Esophageal varices without bleeding (principal)
CPT/HCPCS: 76700

== ENCOUNTER 2023-06-11 09:27 | Inpatient (IN) | payer MEDICARE, OTHER ==
[~2023-06-11] VITALS: Ht 154.9 cm; Wt 77.6 kg
[2023-06-11 09:51] LABS: BASOPHILS % 0.3 % (0.0-1.0); EOSINOPHILS # (AUTO) 0.1 (0.0-0.4); EOSINOPHILS % 2.1 % (0.0-6.0); LYMPHOCYTES # (AUTO) 1.2 (1.0-3.2); LYMPHOCYTES % 21.1 % (18.0-39.1); MEAN CORPUSCULAR HEMOGLOBIN 23.9 pg (28-32); MEAN CORPUSCULAR VOLUME 88.7 fL (81-99); MONOCYTES # (AUTO) 0.4 (0.2-0.8); MONOCYTES % 7.3 % (4.4-11.3); NEUTROPHILS # (AUTO) 3.9 (2.1-6.9); NEUTROPHILS % 68.3 % (38.7-80.0); PLATELET COUNT 291 x10e3/uL (140-360); RED CELL DISTRIBUTION WIDTH 17.1 % (11.7-14.4); WHITE BLOOD COUNT 5.77 x10e3/uL (4.8-10.8)
[2023-06-11 10:04] LABS: HEMOGLOBIN 5.5 g/dL (12.0-16.0)
[2023-06-11 10:05] LABS: HEMATOCRIT 20.4 % (34.2-44.1)
[2023-06-11] MEDS ORDERED: ACETAMINOPHEN 325 MG TAB PO STA (10:05)
[2023-06-11 10:10] LABS: ANION GAP 11.9 mmol/L (8-16); BLOOD UREA NITROGEN 13 mg/dL (7-26); BUN/CREATININE RATIO 18 (6-25); CALCIUM 8.6 mg/dL (8.4-10.2); CARBON DIOXIDE 24 mmol/L (22-29); CHLORIDE 107 mmol/L (98-107); CREATINE KINASE 24 IU/L (29-168); CREATININE, SERUM 0.73 mg/dL (0.57-1.11); GLUCOSE 192 mg/dL (74-118); POTASSIUM 3.9 mmol/L (3.5-5.1); SODIUM 139 mmol/L (136-145)
[2023-06-11] MEDS ORDERED: DIPHENHYDRAMINE HCL INJ 50 MG/ML VIAL IV ONE (10:15)
[2023-06-11] MEDS ORDERED: DEXAMETHASONE SOD PHOS 10 MG/1 ML VIAL IV ONE (10:15)
[2023-06-11] MEDS ORDERED: FAMOTIDINE 20 MG/2 ML VIAL IV ONE (10:15)
[2023-06-11] MEDS ORDERED: SODIUM CHLORIDE 0.9% 250ML 250 ML IV ONE ×2 (10:15→19:30)
[2023-06-11] MEDS ORDERED: FUROSEMIDE INJ 10 MG/ML 2 ML VIAL IV PRN (10:15)
[2023-06-11 10:51] LABS: INFLUENZAE A&B ANTIGEN (RAPID) NEGATIVE (NEGATIVE)
[2023-06-11 10:52] LABS: STREPTOCOCCUS GRP A ANTIGEN NEGATIVE (NEGATIVE)
[2023-06-11 11:30] LABS: CLARITY,URINE CLOUDY (CLEAR); COLOR,URINE YELLOW (YELLOW); KETONES,URINE NEGATIVE (NEGATIVE); LEUKOCYTE ESTERASE ,URINE NEGATIVE (NEGATIVE); NITRITE,URINE POSITIVE (NEGATIVE); PROTEIN,URINE DIPSTICK NEGATIVE (NEGATIVE); URINE UROBILINOGEN 0.2 mg/dL (0.2 - 1)
[2023-06-11 11:32] LABS: BACTERIA,URINE MANY /HPF; EPITHELIAL CELLS,URINE FEW /LPF; RBC,URINE 0-5 /HPF (0-5); WBC,URINE (MAN) >50 /HPF (0-5)
[2023-06-11 12:16] VITALS: PULSE 89; RESP 18; O2SAT 98
[2023-06-11] MEDS ORDERED: LIDOCAINE HCL 2% LOCAL INJ 5 ML SDV VIAL INJ ONE (12:55)
[2023-06-11] MEDS ORDERED: PROPOFOL IV EMULSION 10 MG/ML 20 ML VIAL ONE (12:55)
[2023-06-11] MEDS ORDERED: ETOMIDATE 2 MG/ML 10 ML INJ IV ONE (12:55)
[2023-06-11] MEDS ORDERED: PHENYLEPHRINE HCL 1% 10 MG/ML VIAL ONE (12:55)
[2023-06-11] MEDS ORDERED: METOCLOPRAMIDE HCL 10 MG/2ML VIAL ONE (12:55)
[2023-06-11 16:15] VITALS: BP 107/57; PULSE 79; RESP 19; TEMP 98.5; O2SAT 99
[2023-06-11 17:03] VITALS: BP 107/57; PULSE 71; RESP 19; TEMP 98.4; O2SAT 99
[2023-06-11] MEDS ORDERED: DEXTROSE 50% SYRINGE 50 ML IV PRN (17:15)
[2023-06-11] MEDS: INSULIN REGULAR, HUMAN 100 UNIT/1 ML SQ SCH ×2 (17:27→20:43)
[2023-06-11] MEDS ORDERED: SODIUM CHLORIDE 0.9% 250ML 250 ML ONE (17:44)
[2023-06-11 19:33] LABS: CHOL/HDL RATIO 3.3 (3.0-3.6)
[2023-06-11 19:55] LABS: FERRITIN 11.01 ng/mL (4.63-204.00)
[2023-06-11 20:00] VITALS: BP 119/57; PULSE 79; RESP 18; TEMP 97.2; O2SAT 100
[2023-06-11] MEDS: GABAPENTIN 300 MG CAP PO SCH (20:32)
[2023-06-11] MEDS: ATORVASTATIN 10 MG TAB PO SCH (20:32)
[2023-06-11] MEDS: LOSARTAN POTASSIUM 25 MG TAB PO SCH (20:33)
[2023-06-11 21:00] VITALS: BP 119/57; PULSE 79; RESP 18; TEMP 97.2; O2SAT 100
[2023-06-12] VITALS (8 sets, daily range): BP systolic 92–111; BP diastolic 44–56; PULSE 68–93; RESP 16–18; TEMP 97–98.2; O2SAT 96–99
[2023-06-12] MEDS: FUROSEMIDE INJ 10 MG/ML 2 ML VIAL IV PRN ×2 (00:27→06:37)
[2023-06-12] MEDS ORDERED: SODIUM CHLORIDE 0.9% 250ML 250 ML ONE (01:40)
[2023-06-12] MEDS ORDERED: IOPAMIDOL 370 MG/ML 100 ML INFUS..BTL INJ ONE (06:55)
[2023-06-12 08:36] LABS: BASOPHILS % 0.2 % (0.0-1.0); EOSINOPHILS % 0.4 % (0.0-6.0); HEMATOCRIT 30.4 % (34.2-44.1); HEMOGLOBIN 9.8 g/dL (12.0-16.0); LYMPHOCYTES # (AUTO) 2.2 (1.0-3.2); LYMPHOCYTES % 27.5 % (18.0-39.1); MEAN CORPUSCULAR HEMOGLOBIN 26.8 pg (28-32); MEAN CORPUSCULAR HGB CONC 32.2 g/dL (31-35); MEAN CORPUSCULAR VOLUME 83.1 fL (81-99); MONOCYTES # (AUTO) 0.7 (0.2-0.8); MONOCYTES % 8.1 % (4.4-11.3); NEUTROPHILS # (AUTO) 5.1 (2.1-6.9); NEUTROPHILS % 63.4 % (38.7-80.0); PLATELET COUNT 255 x10e3/uL (140-360); RED BLOOD COUNT 3.66 x10e6/uL (3.6-5.1); WHITE BLOOD COUNT 8.03 x10e3/uL (4.8-10.8)
[2023-06-12 08:59] LABS: ANION GAP 11.7 mmol/L (8-16); CALCIUM 8.7 mg/dL (8.4-10.2); CREATININE, SERUM 0.7 mg/dL (0.57-1.11); POTASSIUM 3.7 mmol/L (3.5-5.1)
[2023-06-12] MEDS: FERROUS SULFATE 325 MG TAB PO SCH (09:30)
[2023-06-12] MEDS: FOLIC ACID 1 MG TAB PO SCH (09:30)
[2023-06-12] MEDS: EZETIMIBE 10 MG TAB PO SCH (09:30)
[2023-06-12] MEDS: INSULIN REGULAR, HUMAN 100 UNIT/1 ML SQ SCH ×4 (09:31→21:00)
[2023-06-12] MEDS ORDERED: ACETAMINOPHEN 325 MG TAB PO PRN (10:15)
[2023-06-12] MEDS: TRAMADOL HCL 50 MG TAB PO PRN (10:34)
[2023-06-12] MEDS: GABAPENTIN 300 MG CAP PO SCH (20:53)
[2023-06-12] MEDS: LOSARTAN POTASSIUM 25 MG TAB PO SCH (20:54)
[2023-06-12] MEDS: ATORVASTATIN 10 MG TAB PO SCH (20:54)
[2023-06-13] VITALS (8 sets, daily range): BP systolic 98–114; BP diastolic 41–72; PULSE 66–88; RESP 16–19; TEMP 97.6–98.5; O2SAT 94–98
[2023-06-13 06:18] LABS: BASOPHILS % 0.2 % (0.0-1.0); EOSINOPHILS # (AUTO) 0.1 (0.0-0.4); EOSINOPHILS % 1.9 % (0.0-6.0); HEMATOCRIT 30.5 % (34.2-44.1); HEMOGLOBIN 9.3 g/dL (12.0-16.0); LYMPHOCYTES # (AUTO) 1.3 (1.0-3.2); LYMPHOCYTES % 20.7 % (18.0-39.1); MEAN CORPUSCULAR HGB CONC 30.5 g/dL (31-35); MEAN CORPUSCULAR VOLUME 85.2 fL (81-99); MONOCYTES # (AUTO) 0.4 (0.2-0.8); MONOCYTES % 6.9 % (4.4-11.3); NEUTROPHILS # (AUTO) 4.3 (2.1-6.9); NEUTROPHILS % 68.7 % (38.7-80.0); PLATELET COUNT 233 x10e3/uL (140-360); RED BLOOD COUNT 3.58 x10e6/uL (3.6-5.1); RED CELL DISTRIBUTION WIDTH 16.1 % (11.7-14.4); WHITE BLOOD COUNT 6.24 x10e3/uL (4.8-10.8)
[2023-06-13 06:58] LABS: ANION GAP 10.6 mmol/L (8-16); CALCIUM 8.5 mg/dL (8.4-10.2); CREATININE, SERUM 0.67 mg/dL (0.57-1.11); POTASSIUM 3.6 mmol/L (3.5-5.1)
[2023-06-13] MEDS: INSULIN REGULAR, HUMAN 100 UNIT/1 ML SQ SCH ×4 (07:30→21:18)
[2023-06-13] MEDS: EZETIMIBE 10 MG TAB PO SCH (09:00)
[2023-06-13] MEDS: FOLIC ACID 1 MG TAB PO SCH (09:00)
[2023-06-13] MEDS: FERROUS SULFATE 325 MG TAB PO SCH (09:00)
[2023-06-13] MEDS ORDERED: FENTANYL CITRATE/PF 100MCG/2 ML INJ ONE (13:39)
[2023-06-13] MEDS ORDERED: ONDANSETRON HCL INJ 2MG/ML 2ML 2 MG/ML VIAL ONE (14:14)
[2023-06-13] MEDS: SUCRALFATE 1 GM TAB PO SCH ×2 (16:34→21:21)
[2023-06-13] MEDS: TRAMADOL HCL 50 MG TAB PO PRN (16:44)
[2023-06-13] MEDS: ATORVASTATIN 10 MG TAB PO SCH (21:21)
[2023-06-13] MEDS: GABAPENTIN 300 MG CAP PO SCH (21:21)
[2023-06-13] MEDS: LOSARTAN POTASSIUM 25 MG TAB PO SCH (21:22)
[2023-06-14 00:48] VITALS: BP 97/45; PULSE 69; RESP 17; TEMP 98.3; O2SAT 94
[2023-06-14 04:51] VITALS: BP 90/49; PULSE 64; RESP 17; TEMP 98.5; O2SAT 96
[2023-06-14 06:10] VITALS: BP 109/55; PULSE 80
[2023-06-14] MEDS ORDERED: PANTOPRAZOLE SO40 MG PO (06:12)
[2023-06-14] MEDS ORDERED: CARAFATE1 GM PO (06:12)
[2023-06-14 06:26] LABS: BASOPHILS % 0.2 % (0.0-1.0); EOSINOPHILS # (AUTO) 0.1 (0.0-0.4); EOSINOPHILS % 2.3 % (0.0-6.0); HEMATOCRIT 31.1 % (34.2-44.1); HEMOGLOBIN 9.5 g/dL (12.0-16.0); LYMPHOCYTES # (AUTO) 1.3 (1.0-3.2); MEAN CORPUSCULAR HEMOGLOBIN 26.6 pg (28-32); MEAN CORPUSCULAR HGB CONC 30.5 g/dL (31-35); MEAN CORPUSCULAR VOLUME 87.1 fL (81-99); MONOCYTES # (AUTO) 0.4 (0.2-0.8); MONOCYTES % 7.6 % (4.4-11.3); NEUTROPHILS # (AUTO) 3.7 (2.1-6.9); NEUTROPHILS % 66.5 % (38.7-80.0); PLATELET COUNT 193 x10e3/uL (140-360); RED BLOOD COUNT 3.57 x10e6/uL (3.6-5.1); RED CELL DISTRIBUTION WIDTH 15.4 % (11.7-14.4); WHITE BLOOD COUNT 5.56 x10e3/uL (4.8-10.8)
[2023-06-14] MEDS ORDERED: SODIUM CHLORIDE 0.9% 500ML 500 ML IV ONE (06:30)
[2023-06-14] MEDS: FERROUS SULFATE 325 MG TAB PO SCH (08:30)
[2023-06-14] MEDS: FOLIC ACID 1 MG TAB PO SCH (08:30)
[2023-06-14] MEDS: SUCRALFATE 1 GM TAB PO SCH (08:30)
[2023-06-14] MEDS: EZETIMIBE 10 MG TAB PO SCH (08:30)
[2023-06-14] MEDS: INSULIN REGULAR, HUMAN 100 UNIT/1 ML SQ SCH (08:34)
[2023-06-14 08:51] VITALS: BP 119/53; PULSE 85; RESP 19; TEMP 98.9; O2SAT 96
== END 2023-06-14 09:33 | disposition home or self-care (01) | DRG 812 ==
LOC: ER 09:40 → ERHOLD 11:01 → MED/SURG2 13:32
PROVIDERS: ADMIT Internal Medicine; ATTEND Internal Medicine
PROC: 30233N1 Transfusion of Nonautologous Red Blood Cells into Peripheral Vein, Percutaneous Approach (ICD-10-PCS; principal; 2023-06-11)
PROC: 0DB68ZX Excision of Stomach, Via Natural or Artificial Opening Endoscopic, Diagnostic (ICD-10-PCS; 2023-06-13)
PROC: 0DB38ZX Excision of Lower Esophagus, Via Natural or Artificial Opening Endoscopic, Diagnostic (ICD-10-PCS; 2023-06-13 13:20)
DX: D50.9 Iron deficiency anemia, unspecified (principal); N39.0 Urinary tract infection, site not specified; K31.819 Angiodysplasia of stomach and duodenum without bleeding; K44.9 Diaphragmatic hernia without obstruction or gangrene; I25.10 Atherosclerotic heart disease of native coronary artery without angina pectoris; E11.9 Type 2 diabetes mellitus without complications; E78.5 Hyperlipidemia, unspecified; K21.9 Gastro-esophageal reflux disease without esophagitis; R53.83 Other fatigue; R53.1 Weakness; Z87.440 Personal history of urinary (tract) infections; Z79.899 Other long term (current) drug therapy; Z20.822 Contact with and (suspected) exposure to COVID-19
CPT/HCPCS: 0223U; 36415; 43235; 43255; 71046; 74174; 80048; 80061; 81001; 82550; 82607; 82728; 82948; 83036; 83518; 83540; 84466; 84484; 85025; 86850; 86900; 86920; 87070; 87400; 88305; 93005; 94799; 96372; 99284; J1100; J1200; J1940; J2001; J2371; J2405; J2765; J7040; J7050; P9016; Q9967

== ENCOUNTER 2024-03-18 15:22 | Inpatient (IN) | payer MEDICARE, OTHER ==
[~2024-03-18] VITALS: Ht 154.9 cm; Wt 72.6 kg
[~2024-03-18 15:22] MED LIST changes: +CARAFATE1 GM PO; +NITROFURANTOIN100 MG PO; +PANTOPRAZOLE SO40 MG PO; +SERTRALINE HCL50 MG PO; +VITAMIN D3 COM1 EACH PO; +[UNRECOGNIZED DRUG - OTHER] PO
[2024-03-18 15:35] VITALS: PULSE 99; RESP 18; TEMP 98.7
[2024-03-18 16:11] LABS: BASOPHILS % 0.2 % (0.0-1.0); EOSINOPHILS # (AUTO) 0.1 (0.0-0.4); EOSINOPHILS % 2.3 % (0.0-6.0); HEMATOCRIT 23.5 % (34.2-44.1); HEMOGLOBIN 6.2 g/dL (12.0-16.0); LYMPHOCYTES # (AUTO) 1.3 (1.0-3.2); MEAN CORPUSCULAR HEMOGLOBIN 26.8 pg (28-32); MEAN CORPUSCULAR HGB CONC 26.4 g/dL (31-35); MEAN CORPUSCULAR VOLUME 101.7 fL (81-99); MONOCYTES # (AUTO) 0.4 (0.2-0.8); MONOCYTES % 8.1 % (4.4-11.3); NEUTROPHILS # (AUTO) 2.5 (2.1-6.9); NEUTROPHILS % 57.9 % (38.7-80.0); PLATELET COUNT 262 x10e3/uL (140-360); RED BLOOD COUNT 2.31 x10e6/uL (3.6-5.1); RED CELL DISTRIBUTION WIDTH 13.8 % (11.7-14.4); WHITE BLOOD COUNT 4.32 x10e3/uL (4.8-10.8)
[2024-03-18 16:19] LABS: INR 0.81; PROTHROMBIN TIME 11.8 seconds (11.9-14.5)
[2024-03-18 16:28] LABS: ALBUMIN 3.1 g/dL (3.5-5.0); ALBUMIN/GLOBULIN RATIO 0.8 (0.8-2.0); ANION GAP 14.9 mmol/L (8-16); BILIRUBIN,TOTAL 0.3 mg/dL (0.2-1.2); CALCIUM 8.7 mg/dL (8.4-10.2); CREATININE, SERUM 0.76 mg/dL (0.57-1.11); POTASSIUM 3.9 mmol/L (3.5-5.1); TOTAL PROTEIN 6.8 g/dL (6.5-8.1)
[2024-03-18] MEDS ORDERED: BENZONATATE 100 MG CAP PO PRN (16:45)
[2024-03-18] MEDS ORDERED: ACETAMINOPHEN 325 MG TAB PO PRN (16:45)
[2024-03-18] MEDS ORDERED: DIPHENHYDRAMINE HCL 25 MG CAP PO PRN (16:45)
[2024-03-18] MEDS ORDERED: LIDOCAINE 4% PATCH TP PRN (16:45)
[2024-03-18] MEDS ORDERED: SIMETHICONE 80 MG CHEW PO PRN (16:45)
[2024-03-18] MEDS ORDERED: DOCUSATE SODIUM 100 MG CAP PO PRN (16:45)
[2024-03-18] MEDS ORDERED: DEXTROSE 50% SYRINGE 50 ML IV PRN ×2 (16:45→17:15)
[2024-03-18] MEDS ORDERED: HYDRALAZINE HCL 20 MG/ML VIAL IV PRN (16:45)
[2024-03-18] MEDS ORDERED: POTASSIUM CHLORIDE 20 MEQ TAB CR PO PRN (16:45)
[2024-03-18] MEDS ORDERED: ALBUTEROL/IPRATROPIUM 3 ML NEB NEB PRN (16:45)
[2024-03-18] MEDS ORDERED: SODIUM CHLORIDE 0.9% 250ML 250 ML IV ONE (17:15)
[2024-03-18] MEDS: SODIUM CHLORIDE 0.9% 1000ML 1,000 ML IV SCH (18:04)
[2024-03-18] MEDS: INSULIN LISPRO 100 UNIT/1 ML 3ML VIAL SQ SCH (21:00)
[2024-03-18 22:27] VITALS: PULSE 96; RESP 16; O2SAT 99
[2024-03-19] MEDS ORDERED: SODIUM CHLORIDE 0.9% 250ML 250 ML ONE ×2 (01:25→04:31)
[2024-03-19] MEDS ORDERED: PANTOPRAZOLE SOD 40 MG TABEC PO SCH (07:30)
[2024-03-19 07:42] VITALS: BP 100/50; PULSE 82; RESP 20; TEMP 97.6; TEMP 98; O2SAT 100
[2024-03-19 08:05] VITALS: PULSE 85; RESP 16; O2SAT 100
[2024-03-19 10:19] LABS: BASOPHILS % 0.2 % (0.0-1.0); EOSINOPHILS # (AUTO) 0.1 (0.0-0.4); EOSINOPHILS % 3.2 % (0.0-6.0); HEMATOCRIT 28.7 % (34.2-44.1); HEMOGLOBIN 8.2 g/dL (12.0-16.0); LYMPHOCYTES # (AUTO) 1.3 (1.0-3.2); LYMPHOCYTES % 30.2 % (18.0-39.1); MEAN CORPUSCULAR HEMOGLOBIN 27.6 pg (28-32); MEAN CORPUSCULAR HGB CONC 28.6 g/dL (31-35); MEAN CORPUSCULAR VOLUME 96.6 fL (81-99); MONOCYTES # (AUTO) 0.3 (0.2-0.8); MONOCYTES % 6.1 % (4.4-11.3); NEUTROPHILS # (AUTO) 2.6 (2.1-6.9); NEUTROPHILS % 59.6 % (38.7-80.0); PLATELET COUNT 207 x10e3/uL (140-360); RED BLOOD COUNT 2.97 x10e6/uL (3.6-5.1); RED CELL DISTRIBUTION WIDTH 16.4 % (11.7-14.4)
[2024-03-19 10:35] LABS: ANION GAP 12.2 mmol/L (8-16); CALCIUM 8.3 mg/dL (8.4-10.2); CREATININE, SERUM 0.66 mg/dL (0.57-1.11); POTASSIUM 4.2 mmol/L (3.5-5.1)
[2024-03-19] MEDS ORDERED: LIDOCAINE HCL 2% LOCAL INJ 5 ML SDV VIAL INJ ONE (12:09)
[2024-03-19] MEDS ORDERED: PROPOFOL IV EMULSION 10 MG/ML 20 ML VIAL ONE (12:09)
[2024-03-19] MEDS: ONDANSETRON HCL INJ 2MG/ML 2ML 2 MG/ML VIAL IV PRN (15:19)
[2024-03-19 16:03] VITALS: BP 105/54; PULSE 63; RESP 17; TEMP 99.2; O2SAT 100
[2024-03-19 19:40] VITALS: PULSE 69; RESP 16; O2SAT 96
[2024-03-19 20:00] VITALS: BP 120/60; PULSE 67; RESP 18; TEMP 98; O2SAT 97
[2024-03-19 20:33] VITALS: BP 105/54; PULSE 69; RESP 16; TEMP 99.2; O2SAT 96
[2024-03-19] MEDS: MELATONIN 5 MG TABLET PO PRN (21:16)
[2024-03-20] VITALS (10 sets, daily range): BP systolic 95–110; BP diastolic 44–68; PULSE 69–79; RESP 16–18; TEMP 97.9–99.4; O2SAT 96–98
[2024-03-20 06:00] LABS: BASOPHILS % 0.2 % (0.0-1.0); EOSINOPHILS # (AUTO) 0.1 (0.0-0.4); EOSINOPHILS % 2.1 % (0.0-6.0); HEMATOCRIT 29.5 % (34.2-44.1); HEMOGLOBIN 8.4 g/dL (12.0-16.0); LYMPHOCYTES # (AUTO) 1.3 (1.0-3.2); LYMPHOCYTES % 26.3 % (18.0-39.1); MEAN CORPUSCULAR HEMOGLOBIN 27.4 pg (28-32); MEAN CORPUSCULAR HGB CONC 28.5 g/dL (31-35); MEAN CORPUSCULAR VOLUME 96.1 fL (81-99); MONOCYTES # (AUTO) 0.4 (0.2-0.8); MONOCYTES % 7.5 % (4.4-11.3); NEUTROPHILS # (AUTO) 3.1 (2.1-6.9); NEUTROPHILS % 63.5 % (38.7-80.0); PLATELET COUNT 206 x10e3/uL (140-360); RED BLOOD COUNT 3.07 x10e6/uL (3.6-5.1); RED CELL DISTRIBUTION WIDTH 16.1 % (11.7-14.4); WHITE BLOOD COUNT 4.82 x10e3/uL (4.8-10.8)
[2024-03-20 06:21] LABS: ANION GAP 9.9 mmol/L (8-16); CALCIUM 8.3 mg/dL (8.4-10.2); CREATININE, SERUM 0.65 mg/dL (0.57-1.11); POTASSIUM 3.9 mmol/L (3.5-5.1)
[2024-03-20] MEDS ORDERED: IOPAMIDOL 370 MG/ML 100 ML INFUS..BTL INJ ONE (11:44)
[2024-03-20] MEDS: SUCRALFATE 1 GM TAB PO SCH (16:32)
[2024-03-21] VITALS (7 sets, daily range): BP systolic 96–116; BP diastolic 47–63; PULSE 62–89; RESP 16–20; TEMP 98.1–99.4; O2SAT 97–99
[2024-03-21 05:52] LABS: BASOPHILS % 0.2 % (0.0-1.0); EOSINOPHILS # (AUTO) 0.1 (0.0-0.4); EOSINOPHILS % 2.6 % (0.0-6.0); HEMATOCRIT 29.3 % (34.2-44.1); HEMOGLOBIN 8.3 g/dL (12.0-16.0); LYMPHOCYTES # (AUTO) 1.3 (1.0-3.2); LYMPHOCYTES % 27.9 % (18.0-39.1); MEAN CORPUSCULAR HEMOGLOBIN 27.4 pg (28-32); MEAN CORPUSCULAR HGB CONC 28.3 g/dL (31-35); MEAN CORPUSCULAR VOLUME 96.7 fL (81-99); MONOCYTES # (AUTO) 0.3 (0.2-0.8); NEUTROPHILS # (AUTO) 2.9 (2.1-6.9); NEUTROPHILS % 61.9 % (38.7-80.0); PLATELET COUNT 196 x10e3/uL (140-360); RED BLOOD COUNT 3.03 x10e6/uL (3.6-5.1); RED CELL DISTRIBUTION WIDTH 14.9 % (11.7-14.4)
[2024-03-21 06:17] LABS: CALCIUM 8.8 mg/dL (8.4-10.2); CREATININE, SERUM 0.68 mg/dL (0.57-1.11); POTASSIUM 4.1 mmol/L (3.5-5.1)
[2024-03-21 06:24] LABS: ANION GAP 5.1 mmol/L (8-16)
[2024-03-21] MEDS ORDERED: PANTOPRAZOLE SO40 MG PO (18:22)
== END 2024-03-21 18:55 | disposition home or self-care (01) | DRG 811 ==
LOC: ER 16:47 → ERHOLD 16:50 → MED/SURG3 17:38
PROVIDERS: ADMIT Internal Medicine; ATTEND Internal Medicine
PROC: 0D578ZZ Destruction of Stomach, Pylorus, Via Natural or Artificial Opening Endoscopic (ICD-10-PCS; principal; 2024-03-19 13:36)
PROC: 30233N1 Transfusion of Nonautologous Red Blood Cells into Peripheral Vein, Percutaneous Approach (ICD-10-PCS; 2024-03-19 13:36)
DX: D50.0 Iron deficiency anemia secondary to blood loss (chronic) (principal); K31.811 Angiodysplasia of stomach and duodenum with bleeding; K76.6 Portal hypertension; K21.9 Gastro-esophageal reflux disease without esophagitis; K44.9 Diaphragmatic hernia without obstruction or gangrene; K74.60 Unspecified cirrhosis of liver; R59.0 Localized enlarged lymph nodes; I10 Essential (primary) hypertension; E78.5 Hyperlipidemia, unspecified; E11.9 Type 2 diabetes mellitus without complications; Z79.84 Long term (current) use of oral hypoglycemic drugs; Z11.52 Encounter for screening for COVID-19; Z79.899 Other long term (current) drug therapy
CPT/HCPCS: 36415; 43239; 43270; 71045; 74177; 80048; 80053; 82948; 85025; 85610; 85730; 86850; 86900; 86920; 94799; 99252; 99284; J2001; J2405; J2470; J7030; J7050; P9016; Q9967; U0002

== ENCOUNTER → 2024-07-07 | Outpatient (REF) | payer MEDICARE ==
[~2024-07-07] MED LIST changes: +VOLTAREN ARTHRI20 GM TOP
[2024-07-07 10:30] LABS: BASOPHILS % 0.4 % (0.0-1.0); EOSINOPHILS # (AUTO) 0.1 (0.0-0.4); EOSINOPHILS % 2.5 % (0.0-6.0); HEMATOCRIT 30.2 % (34.2-44.1); HEMOGLOBIN 8.3 g/dL (12.0-16.0); LYMPHOCYTES # (AUTO) 1.3 (1.0-3.2); LYMPHOCYTES % 26.4 % (18.0-39.1); MEAN CORPUSCULAR HEMOGLOBIN 29.3 pg (28-32); MEAN CORPUSCULAR HGB CONC 27.5 g/dL (31-35); MEAN CORPUSCULAR VOLUME 106.7 fL (81-99); MONOCYTES # (AUTO) 0.4 (0.2-0.8); MONOCYTES % 7.5 % (4.4-11.3); NEUTROPHILS % 62.4 % (38.7-80.0); PLATELET COUNT 197 x10e3/uL (140-360); RED BLOOD COUNT 2.83 x10e6/uL (3.6-5.1); RED CELL DISTRIBUTION WIDTH 13.7 % (11.7-14.4); WHITE BLOOD COUNT 4.78 x10e3/uL (4.8-10.8)
== END ==
LOC: LAB 10:22
PROVIDERS: ATTEND Internal Medicine Gastroenterology
DX: E11.9 Type 2 diabetes mellitus without complications (principal); K31.819 Angiodysplasia of stomach and duodenum without bleeding; K44.9 Diaphragmatic hernia without obstruction or gangrene; K21.9 Gastro-esophageal reflux disease without esophagitis; D50.0 Iron deficiency anemia secondary to blood loss (chronic); Z68.29 Body mass index [BMI] 29.0-29.9, adult; Z71.3 Dietary counseling and surveillance; Z78.9 Other specified health status; Z86.0100 Personal history of colon polyps, unspecified
CPT/HCPCS: 36415; 85025

== ENCOUNTER 2024-09-29 19:14 | Emergency (ER) | payer MEDICARE, OTHER ==
[~2024-09-29] VITALS: Ht 154.9 cm; Wt 70.8 kg
[~2024-09-29 19:14] MED LIST changes: +SUCRALFATE1 GM PO; +VITAMIN C500 MG PO
[2024-09-29] MEDS: ONDANSETRON HCL 4 MG ORAL DISINTEGRATING TAB PO ONE (19:34)
[2024-09-29 19:35] VITALS: TEMP 99
[2024-09-29] MEDS: TRAMADOL HCL 50 MG TAB PO ONE (19:37)
[2024-09-29 22:31] VITALS: PULSE 80; RESP 16
[2024-09-29] MEDS ORDERED: ULTRAM 50MG50 MG PO (22:31)
[2024-09-29] MEDS ORDERED: ONDANSETRON ODT4 MG SL (22:31)
[2024-09-29 22:40] VITALS: BP 121/55; PULSE 82; RESP 15; TEMP 98; O2SAT 98
== END 2024-09-29 22:43 | disposition home or self-care (01) ==
LOC: ER 19:20
DX: R07.89 Other chest pain (principal); K74.60 Unspecified cirrhosis of liver; V43.52XA Car driver injured in collision with other type car in traffic accident, initial encounter; Y92.488 Other paved roadways as the place of occurrence of the external cause; I10 Essential (primary) hypertension; E11.9 Type 2 diabetes mellitus without complications; D64.9 Anemia, unspecified; E78.5 Hyperlipidemia, unspecified; K21.9 Gastro-esophageal reflux disease without esophagitis
CPT/HCPCS: 71250; 99283; Q0162

== ENCOUNTER 2024-10-02 16:00 | Observation (INO) | payer MEDICARE ==
[~2024-10-02] VITALS: Ht 154.9 cm; Wt 70.8 kg
[~2024-10-02 16:00] MED LIST changes: +ONDANSETRON ODT4 MG SL; +ULTRAM 50MG50 MG PO
[2024-10-02 19:00] VITALS: BP 126/56; PULSE 94; RESP 18; TEMP 98.1; O2SAT 99
[2024-10-02 19:50] VITALS: PULSE 88; RESP 18; O2SAT 98
[2024-10-02 20:00] VITALS: BP 126/56; PULSE 94; RESP 18; TEMP 98.1; O2SAT 100
[2024-10-02 21:26] LABS: BASOPHILS % 0.2 % (0.0-1.0); EOSINOPHILS # (AUTO) 0.2 (0.0-0.4); EOSINOPHILS % 2.8 % (0.0-6.0); LYMPHOCYTES # (AUTO) 2.5 (1.0-3.2); LYMPHOCYTES % 43.1 % (18.0-39.1); MEAN CORPUSCULAR HEMOGLOBIN 26.6 pg (28-32); MEAN CORPUSCULAR VOLUME 98.7 fL (81-99); MONOCYTES # (AUTO) 0.4 (0.2-0.8); MONOCYTES % 7.2 % (4.4-11.3); NEUTROPHILS # (AUTO) 2.7 (2.1-6.9); NEUTROPHILS % 46.4 % (38.7-80.0); PLATELET COUNT 207 x10e3/uL (140-360); RED BLOOD COUNT 2.33 x10e6/uL (3.6-5.1); RED CELL DISTRIBUTION WIDTH 14.7 % (11.7-14.4)
[2024-10-02 21:31] LABS: HEMOGLOBIN 6.2 g/dL (12.0-16.0)
[2024-10-02 21:57] LABS: ALBUMIN/GLOBULIN RATIO 0.8 (0.8-2.0); ANION GAP 14.6 mmol/L (8-16); BILIRUBIN,TOTAL 0.4 mg/dL (0.2-1.2); CREATININE, SERUM 0.72 mg/dL (0.57-1.11); POTASSIUM 3.6 mmol/L (3.5-5.1); TOTAL PROTEIN 6.9 g/dL (6.5-8.1)
[2024-10-02 22:16] LABS: FERRITIN 23.87 ng/mL (4.63-204.00)
[2024-10-02 22:29] LABS: INR 0.85; PROTHROMBIN TIME 12.2 seconds (11.9-14.5)
[2024-10-02 23:53] VITALS: BP 126/56; PULSE 94; RESP 18; TEMP 98.1; O2SAT 100
[2024-10-03] VITALS (12 sets, daily range): BP systolic 99–121; BP diastolic 45–58; PULSE 75–91; RESP 16–18; TEMP 97.6–98.7; O2SAT 96–100
[2024-10-03] MEDS: SODIUM CHLORIDE 0.9% 1000ML 1,000 ML IV SCH (04:08)
[2024-10-03 04:45] LABS: ANISOCYTOSIS MODERATE; HYPOCHROMASIA MODERATE; MICROCYTOSIS SLIGHT; OVALOCYTES MODERATE; POIKILOCYTOSIS MODERATE
[2024-10-03 04:46] LABS: PLATELET ESTIMATE ADEQUATE; PLATELET MORPHOLOGY COMMENT NORMAL; POLYCHROMASIA MODERATE; RBC MORPHOLOGY COMMENT ABNORMAL; STOMATOCYTES MODERATE
[2024-10-03 07:21] LABS: CLARITY,URINE CLEAR (CLEAR); COLOR,URINE YELLOW (YELLOW)
[2024-10-03 07:22] LABS: BILIRUBIN,URINE NEGATIVE (NEGATIVE); GLUCOSE, URINE NEGATIVE (NEGATIVE); KETONES,URINE NEGATIVE (NEGATIVE); LEUKOCYTE ESTERASE ,URINE SMALL (NEGATIVE); NITRITE,URINE POSITIVE (NEGATIVE); PH,URINE 5.5 (5 - 7); PROTEIN,URINE DIPSTICK NEGATIVE (NEGATIVE); URINE UROBILINOGEN 1 mg/dL (0.2 - 1)
[2024-10-03 07:33] LABS: BACTERIA,URINE MANY /HPF; EPITHELIAL CELLS,URINE FEW /LPF; RBC,URINE 0-5 /HPF (0-5); WBC,URINE (MAN) >50 /HPF (0-5)
[2024-10-03] MEDS: METFORMIN HCL 500 MG TAB PO SCH (08:00)
[2024-10-03] MEDS: GLIPIZIDE 5 MG TAB PO SCH (08:00)
[2024-10-03] MEDS ORDERED: NON-FORMULARY MEDICATION (Linagliptin (Tradjenta) 5 MG) PO SCH (09:00)
[2024-10-03] MEDS ORDERED: NON-FORMULARY MEDICATION ([Farxiga] 10 MG) PO SCH (09:00)
[2024-10-03] MEDS: LOSARTAN POTASSIUM 25 MG TAB PO SCH (09:00)
[2024-10-03] MEDS: SERTRALINE HCL 50 MG TAB PO SCH (09:35)
[2024-10-03] MEDS: FERROUS SULFATE 325 MG TAB PO SCH (09:35)
[2024-10-03] MEDS: EZETIMIBE 10 MG TAB PO SCH (09:36)
[2024-10-03] MEDS: FOLIC ACID 1 MG TAB PO SCH (09:36)
[2024-10-03] MEDS ORDERED: HYDRALAZINE HCL 20 MG/ML VIAL IV PRN (09:45)
[2024-10-03] MEDS ORDERED: POTASSIUM CHLORIDE 20 MEQ TAB CR PO PRN (09:45)
[2024-10-03] MEDS ORDERED: SIMETHICONE 80 MG CHEW PO PRN (09:45)
[2024-10-03] MEDS ORDERED: ACETAMINOPHEN 325 MG TAB PO PRN (09:45)
[2024-10-03] MEDS ORDERED: DIPHENHYDRAMINE HCL 25 MG CAP PO PRN (09:45)
[2024-10-03] MEDS ORDERED: LIDOCAINE 4% PATCH TP PRN (09:45)
[2024-10-03] MEDS ORDERED: DEXTROSE 50% SYRINGE 50 ML IV PRN ×2 (09:45)
[2024-10-03] MEDS ORDERED: BENZONATATE 100 MG CAP PO PRN (09:45)
[2024-10-03] MEDS ORDERED: ONDANSETRON HCL INJ 2MG/ML 2ML 2 MG/ML VIAL IV PRN (09:45)
[2024-10-03] MEDS ORDERED: DOCUSATE SODIUM 100 MG CAP PO PRN (09:45)
[2024-10-03] MEDS ORDERED: ALBUTEROL/IPRATROPIUM 3 ML NEB NEB PRN (09:45)
[2024-10-03 10:47] LABS: BASOPHILS % 0.4 % (0.0-1.0); EOSINOPHILS # (AUTO) 0.2 (0.0-0.4); EOSINOPHILS % 3.3 % (0.0-6.0); HEMATOCRIT 27.2 % (34.2-44.1); HEMOGLOBIN 8.2 g/dL (12.0-16.0); LYMPHOCYTES # (AUTO) 1.2 (1.0-3.2); LYMPHOCYTES % 26.9 % (18.0-39.1); MEAN CORPUSCULAR HGB CONC 30.1 g/dL (31-35); MEAN CORPUSCULAR VOLUME 92.8 fL (81-99); MONOCYTES # (AUTO) 0.3 (0.2-0.8); MONOCYTES % 7.4 % (4.4-11.3); NEUTROPHILS # (AUTO) 2.8 (2.1-6.9); NEUTROPHILS % 61.1 % (38.7-80.0); PLATELET COUNT 189 x10e3/uL (140-360); RED BLOOD COUNT 2.93 x10e6/uL (3.6-5.1); RED CELL DISTRIBUTION WIDTH 15.3 % (11.7-14.4); WHITE BLOOD COUNT 4.61 x10e3/uL (4.8-10.8)
[2024-10-03] MEDS: INSULIN LISPRO 100 UNIT/1 ML 3ML VIAL SQ SCH (11:30)
[2024-10-03] MEDS ORDERED: MELATONIN 5 MG TABLET PO PRN (21:00)
[2024-10-04] VITALS (11 sets, daily range): BP systolic 99–118; BP diastolic 41–51; PULSE 60–85; RESP 17–18; TEMP 97.8–98.3; O2SAT 95–100
[2024-10-04 06:07] LABS: BASOPHILS % 0.2 % (0.0-1.0); EOSINOPHILS # (AUTO) 0.2 (0.0-0.4); EOSINOPHILS % 4.7 % (0.0-6.0); LYMPHOCYTES # (AUTO) 1.4 (1.0-3.2); LYMPHOCYTES % 33.7 % (18.0-39.1); MEAN CORPUSCULAR HEMOGLOBIN 27.6 pg (28-32); MEAN CORPUSCULAR HGB CONC 29.6 g/dL (31-35); MEAN CORPUSCULAR VOLUME 93.1 fL (81-99); MONOCYTES # (AUTO) 0.3 (0.2-0.8); MONOCYTES % 8.2 % (4.4-11.3); NEUTROPHILS # (AUTO) 2.1 (2.1-6.9); PLATELET COUNT 173 x10e3/uL (140-360); WHITE BLOOD COUNT 4.03 x10e3/uL (4.8-10.8)
[2024-10-04 06:50] LABS: ANION GAP 10.7 mmol/L (8-16); CALCIUM 8.6 mg/dL (8.4-10.2); CREATININE, SERUM 0.6 mg/dL (0.57-1.11); POTASSIUM 3.7 mmol/L (3.5-5.1)
[2024-10-04] MEDS: SODIUM CHLORIDE 0.9% 250ML 250 ML IV ONE (08:02)
[2024-10-04] MEDS: SODIUM CHLORIDE 0.9% 250ML 250 ML ONE (08:02)
[2024-10-04] MEDS: PANTOPRAZOLE SOD 40 MG TABEC PO SCH (08:25)
[2024-10-05] VITALS (10 sets, daily range): BP systolic 98–138; BP diastolic 44–73; PULSE 59–76; RESP 16–20; TEMP 97.7–98.6; O2SAT 94–99
[2024-10-05] MEDS: CYANOCOBALAMIN 1,000 MCG TAB PO SCH (08:45)
[2024-10-05] MEDS: IRON SUCROSE 100 MG in SODIUM CHLORIDE 0.9% 100 ML IV SCH (08:48)
[2024-10-05 10:39] LABS: BASOPHILS % 0.3 % (0.0-1.0); EOSINOPHILS # (AUTO) 0.1 (0.0-0.4); EOSINOPHILS % 3.2 % (0.0-6.0); HEMATOCRIT 30.8 % (34.2-44.1); HEMOGLOBIN 9.1 g/dL (12.0-16.0); LYMPHOCYTES # (AUTO) 0.9 (1.0-3.2); LYMPHOCYTES % 29.2 % (18.0-39.1); MEAN CORPUSCULAR HEMOGLOBIN 28.2 pg (28-32); MEAN CORPUSCULAR HGB CONC 29.5 g/dL (31-35); MEAN CORPUSCULAR VOLUME 95.4 fL (81-99); MONOCYTES # (AUTO) 0.3 (0.2-0.8); MONOCYTES % 7.9 % (4.4-11.3); NEUTROPHILS # (AUTO) 1.9 (2.1-6.9); NEUTROPHILS % 59.1 % (38.7-80.0); PLATELET COUNT 167 x10e3/uL (140-360); RED BLOOD COUNT 3.23 x10e6/uL (3.6-5.1); RED CELL DISTRIBUTION WIDTH 14.6 % (11.7-14.4); WHITE BLOOD COUNT 3.15 x10e3/uL (4.8-10.8)
[2024-10-05] MEDS ORDERED: FENTANYL CITRATE/PF 100MCG/2 ML INJ ONE (10:53)
[2024-10-05] MEDS ORDERED: PROPOFOL IV EMULSION 10 MG/ML 20 ML VIAL ONE (10:53)
[2024-10-05] MEDS ORDERED: LIDOCAINE HCL 2% LOCAL INJ 5 ML SDV VIAL INJ ONE (10:53)
[2024-10-05] MEDS: DOXYCYCLINE HYCLATE TABLET 100 MG TAB PO SCH (13:56)
[2024-10-06 03:08] VITALS: BP 114/49; PULSE 71; RESP 18; TEMP 98.3; O2SAT 95
[2024-10-06 07:15] VITALS: PULSE 63; RESP 21; O2SAT 96
[2024-10-06 09:10] VITALS: BP 108/44; PULSE 70; RESP 18; TEMP 98.2; O2SAT 95
[2024-10-06] MEDS ORDERED: BACTRIM DS TAB1 EACH PO (13:12)
[2024-10-06 13:29] VITALS: BP 119/49; PULSE 70; RESP 18; TEMP 98.3; O2SAT 96
[2024-10-06] MEDS ORDERED: VITAMIN B-121000 MC4 PO (15:24)
[2024-10-06] MEDS ORDERED: FERROUS SULFAT325 M1 PO (15:24)
== END 2024-10-06 17:00 | disposition home or self-care (01) ==
LOC: MED/SURG3 16:00 → INTOOBSV 16:00
PROVIDERS: ADMIT Internal Medicine; ATTEND Internal Medicine
DX: K31.811 Angiodysplasia of stomach and duodenum with bleeding (principal); Q27.33 Arteriovenous malformation of digestive system vessel; D62 Acute posthemorrhagic anemia; D50.9 Iron deficiency anemia, unspecified; N30.90 Cystitis, unspecified without hematuria; K74.60 Unspecified cirrhosis of liver; B95.62 Methicillin resistant Staphylococcus aureus infection as the cause of diseases classified elsewhere; K44.9 Diaphragmatic hernia without obstruction or gangrene; K29.70 Gastritis, unspecified, without bleeding; R91.1 Solitary pulmonary nodule; E11.9 Type 2 diabetes mellitus without complications; Z79.4 Long term (current) use of insulin; F41.8 Other specified anxiety disorders; E78.5 Hyperlipidemia, unspecified; I10 Essential (primary) hypertension; K21.9 Gastro-esophageal reflux disease without esophagitis
CPT/HCPCS: 36430; 43255; P9016; 36415; 43239; 43270; 71045; 74181; 76705; 80048; 80053; 81001; 82607; 82728; 82948; 83036; 83540; 84466; 85025; 85610; 85730; 86850; 86900; 86920; 87086; 87186; 93005; 94799; G0378; J0696; J1756; J2003; J2470; J7030; J7050

== ENCOUNTER 2024-11-06 17:58 | Inpatient (IN) | payer MEDICARE, OTHER ==
[~2024-11-06] VITALS: Ht 154.9 cm; Wt 70.8 kg
[~2024-11-06 17:58] MED LIST changes: +BACTRIM DS TAB1 EACH PO; +FERROUS SULFAT325 M1 PO; +VITAMIN B-121000 MC4 PO
[2024-11-06 18:23] LABS: BASOPHILS % 0.3 % (0.0-1.0); EOSINOPHILS # (AUTO) 0.1 (0.0-0.4); EOSINOPHILS % 2.5 % (0.0-6.0); HEMOGLOBIN 6.3 g/dL (12.0-16.0); LYMPHOCYTES # (AUTO) 1.1 (1.0-3.2); LYMPHOCYTES % 30.1 % (18.0-39.1); MEAN CORPUSCULAR HEMOGLOBIN 27.5 pg (28-32); MEAN CORPUSCULAR VOLUME 94.8 fL (81-99); MONOCYTES # (AUTO) 0.3 (0.2-0.8); MONOCYTES % 8.5 % (4.4-11.3); NEUTROPHILS # (AUTO) 2.1 (2.1-6.9); PLATELET COUNT 202 x10e3/uL (140-360); RED BLOOD COUNT 2.29 x10e6/uL (3.6-5.1); RED CELL DISTRIBUTION WIDTH 15.2 % (11.7-14.4); WHITE BLOOD COUNT 3.55 x10e3/uL (4.8-10.8)
[2024-11-06 18:28] LABS: HEMATOCRIT 21.7 % (34.2-44.1)
[2024-11-06 18:38] LABS: INR 0.97; PARTIAL THROMBOPLASTIN TIME 30.3 seconds (23.8-35.5); PROTHROMBIN TIME 13.5 seconds (11.9-14.5)
[2024-11-06 18:45] LABS: ANION GAP 14.6 mmol/L (8-16); CALCIUM 8.4 mg/dL (8.4-10.2); CREATININE, SERUM 0.83 mg/dL (0.57-1.11); POTASSIUM 3.6 mmol/L (3.5-5.1)
[2024-11-06] MEDS ORDERED: ONDANSETRON HCL INJ 2MG/ML 2ML 2 MG/ML VIAL IV PRN (18:45)
[2024-11-06] MEDS ORDERED: SODIUM CHLORIDE FLUSH 10 ML SYR INJ PRN (18:45)
[2024-11-06] MEDS ORDERED: DEXTROSE 50% SYRINGE 50 ML IV PRN (18:45)
[2024-11-06 19:19] VITALS: PULSE 93; RESP 20; TEMP 98.1
[2024-11-06 19:19] LABS: FERRITIN 30.65 ng/mL (4.63-204.00)
[2024-11-06 19:20] VITALS: PULSE 93; RESP 20; O2SAT 99
[2024-11-06] MEDS: INSULIN REGULAR, HUMAN 100 UNIT/1 ML SQ ONE (19:20)
[2024-11-06 20:03] VITALS: BP 115/54; PULSE 68; RESP 18; TEMP 98.2; O2SAT 98
[2024-11-06 20:15] VITALS: BP 115/54; PULSE 68; RESP 18; TEMP 98.2; O2SAT 98
[2024-11-06] MEDS: INSULIN REGULAR, HUMAN 100 UNIT/1 ML SQ SCH (21:00)
[2024-11-06 21:23] VITALS: BP 115/54; PULSE 68; RESP 18; TEMP 98.2; O2SAT 98
[2024-11-07] VITALS (8 sets, daily range): BP systolic 104–124; BP diastolic 47–69; PULSE 66–81; RESP 17–20; TEMP 97.9–98.7; O2SAT 96–100
[2024-11-07] MEDS: SODIUM CHLORIDE 0.9% 250ML 250 ML ONE ×2 (00:11→05:01)
[2024-11-07] MEDS: SODIUM CHLORIDE 0.9% 250ML 250 ML IV ONE (00:11)
[2024-11-07 10:40] LABS: BASOPHILS % 0.3 % (0.0-1.0); EOSINOPHILS # (AUTO) 0.1 (0.0-0.4); EOSINOPHILS % 3.4 % (0.0-6.0); HEMATOCRIT 25.4 % (34.2-44.1); HEMOGLOBIN 7.7 g/dL (12.0-16.0); LYMPHOCYTES # (AUTO) 1.2 (1.0-3.2); LYMPHOCYTES % 30.8 % (18.0-39.1); MEAN CORPUSCULAR HEMOGLOBIN 27.3 pg (28-32); MEAN CORPUSCULAR HGB CONC 30.3 g/dL (31-35); MEAN CORPUSCULAR VOLUME 90.1 fL (81-99); MONOCYTES # (AUTO) 0.3 (0.2-0.8); MONOCYTES % 8.5 % (4.4-11.3); NEUTROPHILS # (AUTO) 2.1 (2.1-6.9); NEUTROPHILS % 56.5 % (38.7-80.0); PLATELET COUNT 175 x10e3/uL (140-360); RED BLOOD COUNT 2.82 x10e6/uL (3.6-5.1); RED CELL DISTRIBUTION WIDTH 17.1 % (11.7-14.4); WHITE BLOOD COUNT 3.77 x10e3/uL (4.8-10.8)
[2024-11-07 10:52] LABS: ANION GAP 11.9 mmol/L (8-16); CALCIUM 8.4 mg/dL (8.4-10.2); CREATININE, SERUM 0.64 mg/dL (0.57-1.11); POTASSIUM 3.9 mmol/L (3.5-5.1)
[2024-11-07] MEDS: ACETAMINOPHEN/CODEINE 300MG - 30MG TAB PO PRN (12:07)
[2024-11-07] MEDS ORDERED: POTASSIUM CHLORIDE 20 MEQ TAB CR PO PRN (16:00)
[2024-11-07] MEDS ORDERED: SIMETHICONE 80 MG CHEW PO PRN (16:00)
[2024-11-07] MEDS ORDERED: DEXTROSE 50% SYRINGE 50 ML IV PRN (16:00)
[2024-11-07] MEDS ORDERED: DIPHENHYDRAMINE HCL 25 MG CAP PO PRN (16:00)
[2024-11-07] MEDS ORDERED: MELATONIN 5 MG TABLET PO PRN (16:00)
[2024-11-07] MEDS ORDERED: LIDOCAINE 4% PATCH TP PRN (16:00)
[2024-11-07] MEDS ORDERED: HYDRALAZINE HCL 20 MG/ML VIAL IV PRN (16:00)
[2024-11-07] MEDS ORDERED: ACETAMINOPHEN 325 MG TAB PO PRN (16:00)
[2024-11-07] MEDS ORDERED: ALBUTEROL/IPRATROPIUM 3 ML NEB NEB PRN (16:00)
[2024-11-07] MEDS ORDERED: DOCUSATE SODIUM 100 MG CAP PO PRN (16:00)
[2024-11-07] MEDS ORDERED: BENZONATATE 100 MG CAP PO PRN (16:15)
[2024-11-08] VITALS (8 sets, daily range): BP systolic 103–113; BP diastolic 51–64; PULSE 66–90; RESP 17–22; TEMP 97.9–98.6; O2SAT 96–98
[2024-11-08] MEDS: PANTOPRAZOLE SOD 40 MG TABEC PO SCH ×2 (07:30→09:10)
[2024-11-08 07:55] LABS: BASOPHILS % 0.3 % (0.0-1.0); EOSINOPHILS # (AUTO) 0.1 (0.0-0.4); EOSINOPHILS % 3.7 % (0.0-6.0); HEMATOCRIT 27.3 % (34.2-44.1); HEMOGLOBIN 8.3 g/dL (12.0-16.0); LYMPHOCYTES # (AUTO) 1.2 (1.0-3.2); LYMPHOCYTES % 30.3 % (18.0-39.1); MEAN CORPUSCULAR HEMOGLOBIN 27.5 pg (28-32); MEAN CORPUSCULAR HGB CONC 30.4 g/dL (31-35); MEAN CORPUSCULAR VOLUME 90.4 fL (81-99); MONOCYTES # (AUTO) 0.3 (0.2-0.8); MONOCYTES % 7.4 % (4.4-11.3); NEUTROPHILS # (AUTO) 2.2 (2.1-6.9); PLATELET COUNT 183 x10e3/uL (140-360); RED BLOOD COUNT 3.02 x10e6/uL (3.6-5.1); RED CELL DISTRIBUTION WIDTH 16.8 % (11.7-14.4)
[2024-11-08 08:19] LABS: ANION GAP 9.9 mmol/L (8-16); CALCIUM 8.5 mg/dL (8.4-10.2); CREATININE, SERUM 0.66 mg/dL (0.57-1.11); POTASSIUM 3.9 mmol/L (3.5-5.1)
[2024-11-08] MEDS: SERTRALINE HCL 50 MG TAB PO SCH (09:10)
== END 2024-11-08 20:55 | disposition home or self-care (01) | DRG 812 ==
LOC: ER 18:15 → ERHOLD 18:40 → MED/SURG2 19:39 → OBSVTOIN 11-08 14:52
PROVIDERS: ADMIT Internal Medicine; ATTEND Internal Medicine
PROC: 30233N1 Transfusion of Nonautologous Red Blood Cells into Peripheral Vein, Percutaneous Approach (ICD-10-PCS; principal; 2024-11-08)
DX: D50.9 Iron deficiency anemia, unspecified (principal); K74.60 Unspecified cirrhosis of liver; E11.40 Type 2 diabetes mellitus with diabetic neuropathy, unspecified; I10 Essential (primary) hypertension; K21.9 Gastro-esophageal reflux disease without esophagitis; E78.5 Hyperlipidemia, unspecified; R00.0 Tachycardia, unspecified; F41.9 Anxiety disorder, unspecified; F32.A Depression, unspecified; Z79.84 Long term (current) use of oral hypoglycemic drugs; Z90.49 Acquired absence of other specified parts of digestive tract; Z83.3 Family history of diabetes mellitus; Z82.49 Family history of ischemic heart disease and other diseases of the circulatory system
CPT/HCPCS: 36415; 80048; 82728; 82948; 83540; 84466; 85025; 85610; 85730; 86850; 86900; 86920; 94799; 99284; G0378; J2470; J7050; P9016

== ENCOUNTER 2024-11-22 22:59 | Inpatient (IN) | payer MEDICARE, OTHER ==
[~2024-11-22] VITALS: Ht 307.3 cm; Wt 70.8 kg
[~2024-11-22 22:59] MED LIST changes: +PHENYLEPHRINE HCL 1% 10 MG/ML VIAL ONE
[2024-11-22 23:21] VITALS: TEMP 98.4
[2024-11-22] MEDS ORDERED: SODIUM CHLORIDE FLUSH 10 ML SYR IV PRN (23:45)
[2024-11-23] VITALS (12 sets, daily range): BP systolic 99–119; BP diastolic 49–62; PULSE 70–90; RESP 14–18; TEMP 97.8–98.5; O2SAT 96–100
[2024-11-23 00:05] LABS: BASOPHILS % 0.4 % (0.0-1.0); EOSINOPHILS # (AUTO) 0.1 (0.0-0.4); EOSINOPHILS % 2.2 % (0.0-6.0); LYMPHOCYTES # (AUTO) 1.1 (1.0-3.2); LYMPHOCYTES % 21.5 % (18.0-39.1); MEAN CORPUSCULAR HEMOGLOBIN 26.4 pg (28-32); MEAN CORPUSCULAR HGB CONC 28.7 g/dL (31-35); MEAN CORPUSCULAR VOLUME 91.9 fL (81-99); MONOCYTES # (AUTO) 0.5 (0.2-0.8); MONOCYTES % 8.9 % (4.4-11.3); NEUTROPHILS # (AUTO) 3.4 (2.1-6.9); NEUTROPHILS % 66.6 % (38.7-80.0); PLATELET COUNT 225 x10e3/uL (140-360); RED BLOOD COUNT 2.35 x10e6/uL (3.6-5.1); WHITE BLOOD COUNT 5.06 x10e3/uL (4.8-10.8)
[2024-11-23 00:10] LABS: HEMATOCRIT 21.6 % (34.2-44.1); HEMOGLOBIN 6.2 g/dL (12.0-16.0)
[2024-11-23 00:19] LABS: ALBUMIN/GLOBULIN RATIO 0.9 (0.8-2.0); ANION GAP 13.3 mmol/L (8-16); BILIRUBIN,TOTAL 0.4 mg/dL (0.2-1.2); CALCIUM 9.1 mg/dL (8.4-10.2); CREATININE, SERUM 0.94 mg/dL (0.57-1.11); POTASSIUM 4.3 mmol/L (3.5-5.1); TOTAL PROTEIN 6.5 g/dL (6.5-8.1)
[2024-11-23 00:30] LABS: TROPONIN I 0.693 ng/mL (0-0.300)
[2024-11-23] MEDS ORDERED: SODIUM CHLORIDE FLUSH 10 ML SYR INJ PRN (01:30)
[2024-11-23] MEDS ORDERED: DEXTROSE 50% SYRINGE 50 ML IV PRN ×2 (01:30→12:30)
[2024-11-23] MEDS: INSULIN REGULAR, HUMAN 100 UNIT/1 ML SQ SCH (02:20)
[2024-11-23] MEDS: SODIUM CHLORIDE 0.9% 250ML 250 ML IV ONE (03:58)
[2024-11-23 08:41] LABS: TROPONIN I 0.909 ng/mL (0-0.300)
[2024-11-23] MEDS: SODIUM CHLORIDE 0.9% 250ML 250 ML ONE (12:10)
[2024-11-23] MEDS ORDERED: LIDOCAINE 4% PATCH TP PRN (12:30)
[2024-11-23] MEDS ORDERED: ALBUTEROL/IPRATROPIUM 3 ML NEB NEB PRN (12:30)
[2024-11-23] MEDS ORDERED: HYDRALAZINE HCL 20 MG/ML VIAL IV PRN (12:30)
[2024-11-23] MEDS ORDERED: MELATONIN 5 MG TABLET PO PRN (12:30)
[2024-11-23] MEDS ORDERED: POTASSIUM CHLORIDE 20 MEQ TAB CR PO PRN (12:30)
[2024-11-23] MEDS ORDERED: ONDANSETRON HCL INJ 2MG/ML 2ML 2 MG/ML VIAL IV PRN (12:30)
[2024-11-23] MEDS ORDERED: SIMETHICONE 80 MG CHEW PO PRN (12:30)
[2024-11-23] MEDS ORDERED: ACETAMINOPHEN 325 MG TAB PO PRN (12:30)
[2024-11-23] MEDS ORDERED: DOCUSATE SODIUM 100 MG CAP PO PRN (12:30)
[2024-11-23] MEDS ORDERED: DIPHENHYDRAMINE HCL 25 MG CAP PO PRN (12:30)
[2024-11-23] MEDS ORDERED: HYDROCODONE/APAP 5MG-325MG TAB PO PRN (12:30)
[2024-11-23] MEDS ORDERED: BENZONATATE 100 MG CAP PO PRN (12:30)
[2024-11-23 22:55] LABS: HEMATOCRIT 27.4 % (34.2-44.1); HEMOGLOBIN 8.3 g/dL (12.0-16.0)
[2024-11-24] VITALS (7 sets, daily range): BP systolic 106–125; BP diastolic 52–60; PULSE 76–85; RESP 17–20; TEMP 98.1–98.4; O2SAT 95–100
[2024-11-24 05:25] LABS: BASOPHILS % 0.4 % (0.0-1.0); EOSINOPHILS # (AUTO) 0.1 (0.0-0.4); EOSINOPHILS % 2.9 % (0.0-6.0); HEMOGLOBIN 8.4 g/dL (12.0-16.0); LYMPHOCYTES # (AUTO) 1.2 (1.0-3.2); LYMPHOCYTES % 27.4 % (18.0-39.1); MEAN CORPUSCULAR HEMOGLOBIN 25.5 pg (28-32); MEAN CORPUSCULAR VOLUME 85.1 fL (81-99); MONOCYTES # (AUTO) 0.3 (0.2-0.8); MONOCYTES % 7.3 % (4.4-11.3); NEUTROPHILS # (AUTO) 2.8 (2.1-6.9); NEUTROPHILS % 61.6 % (38.7-80.0); PLATELET COUNT 207 x10e3/uL (140-360); RED BLOOD COUNT 3.29 x10e6/uL (3.6-5.1); WHITE BLOOD COUNT 4.52 x10e3/uL (4.8-10.8)
[2024-11-24 06:15] LABS: CALCIUM 8.3 mg/dL (8.4-10.2); CREATININE, SERUM 0.67 mg/dL (0.57-1.11); MAGNESIUM 1.9 MG/DL (1.3-2.1)
[2024-11-24 06:42] LABS: CHOL/HDL RATIO 2.5 (3.0-3.6)
[2024-11-24] MEDS: PANTOPRAZOLE SOD 40 MG TABEC PO SCH (07:30)
[2024-11-24] MEDS: EZETIMIBE 10 MG TAB PO SCH (08:34)
[2024-11-24] MEDS: FOLIC ACID 1 MG TAB PO SCH (08:34)
[2024-11-25] VITALS (9 sets, daily range): BP systolic 106–124; BP diastolic 52–62; PULSE 76–98; RESP 16–20; TEMP 97.4–99.7; O2SAT 93–100
[2024-11-25 05:26] LABS: BASOPHILS % 0.2 % (0.0-1.0); EOSINOPHILS # (AUTO) 0.2 (0.0-0.4); HEMATOCRIT 28.7 % (34.2-44.1); HEMOGLOBIN 8.3 g/dL (12.0-16.0); LYMPHOCYTES # (AUTO) 1.5 (1.0-3.2); LYMPHOCYTES % 32.6 % (18.0-39.1); MEAN CORPUSCULAR HGB CONC 28.9 g/dL (31-35); MEAN CORPUSCULAR VOLUME 86.4 fL (81-99); MONOCYTES # (AUTO) 0.3 (0.2-0.8); MONOCYTES % 7.2 % (4.4-11.3); NEUTROPHILS # (AUTO) 2.6 (2.1-6.9); NEUTROPHILS % 55.8 % (38.7-80.0); PLATELET COUNT 199 x10e3/uL (140-360); RED BLOOD COUNT 3.32 x10e6/uL (3.6-5.1); RED CELL DISTRIBUTION WIDTH 19.6 % (11.7-14.4)
[2024-11-25 05:52] LABS: ANION GAP 11.9 mmol/L (8-16); CALCIUM 8.6 mg/dL (8.4-10.2); CREATININE, SERUM 0.65 mg/dL (0.57-1.11); POTASSIUM 3.9 mmol/L (3.5-5.1)
[2024-11-25] MEDS: SERTRALINE HCL 50 MG TAB PO SCH (08:30)
[2024-11-25] MEDS ORDERED: LIDOCAINE HCL 2% LOCAL INJ 5 ML SDV VIAL INJ ONE (11:31)
[2024-11-25] MEDS ORDERED: PROPOFOL IV EMULSION 10 MG/ML 20 ML VIAL ONE ×2 (11:31→11:45)
[2024-11-25] MEDS ORDERED: FENTANYL CITRATE/PF 100MCG/2 ML INJ ONE (11:38)
[2024-11-25] MEDS ORDERED: EPHEDRINE SULFATE INJ 50 MG/ML VIAL ONE (13:10)
[2024-11-25] MEDS: SUCRALFATE 1 GM TAB PO SCH (17:15)
[2024-11-26 03:16] VITALS: BP 103/55; PULSE 82; RESP 18; TEMP 98.9; O2SAT 95
[2024-11-26] MEDS: ONDANSETRON HCL INJ 2MG/ML 2ML 2 MG/ML VIAL IV PRN (03:58)
[2024-11-26 05:34] LABS: HEMATOCRIT 26.8 % (34.2-44.1)
[2024-11-26 06:12] LABS: ANION GAP 10.7 mmol/L (8-16); CALCIUM 8.4 mg/dL (8.4-10.2); CREATININE, SERUM 0.6 mg/dL (0.57-1.11); POTASSIUM 3.7 mmol/L (3.5-5.1)
[2024-11-26 09:38] VITALS: BP 103/47; PULSE 78; RESP 16; TEMP 98.8; O2SAT 97
[2024-11-26 10:22] VITALS: BP 103/47; PULSE 78; RESP 16; TEMP 98.8; O2SAT 97
[2024-11-26 12:00] VITALS: BP 99/52; PULSE 78; RESP 17; TEMP 97.5; O2SAT 98
[2024-11-26 16:00] VITALS: BP 106/56; PULSE 79; RESP 17; TEMP 98.6; O2SAT 99
== END 2024-11-26 18:00 | disposition home or self-care (01) | DRG 377 ==
LOC: ER 11-23 00:35 → ERHOLD 11-23 01:32 → MED/SURG2 11-23 02:44
PROVIDERS: ADMIT Internal Medicine; ATTEND Internal Medicine
PROC: 30233N1 Transfusion of Nonautologous Red Blood Cells into Peripheral Vein, Percutaneous Approach (ICD-10-PCS; 2024-11-23)
PROC: 0W3P8ZZ Control Bleeding in Gastrointestinal Tract, Via Natural or Artificial Opening Endoscopic (ICD-10-PCS; principal; 2024-11-25 11:41)
DX: K31.811 Angiodysplasia of stomach and duodenum with bleeding (principal); I21.A1 Myocardial infarction type 2; I10 Essential (primary) hypertension; E11.9 Type 2 diabetes mellitus without complications; E78.5 Hyperlipidemia, unspecified; K21.9 Gastro-esophageal reflux disease without esophagitis; R07.2 Precordial pain; R79.89 Other specified abnormal findings of blood chemistry; D50.9 Iron deficiency anemia, unspecified; Z79.84 Long term (current) use of oral hypoglycemic drugs; Z90.49 Acquired absence of other specified parts of digestive tract
CPT/HCPCS: 36415; 43270; 71045; 80048; 80053; 80061; 82550; 82948; 83735; 83880; 84484; 85014; 85018; 85025; 86850; 86900; 86920; 93005; 93306; 94760; 94799; 96372; 99284; J2003; J2371; J2405; J2470; J7050; P9016

== ENCOUNTER 2024-12-19 17:32 | Emergency (ER) | payer MEDICARE, OTHER ==
[~2024-12-19] VITALS: Ht 154.9 cm; Wt 70.8 kg
[~2024-12-19 17:32] MED LIST changes: -PHENYLEPHRINE HCL 1% 10 MG/ML VIAL ONE
[2024-12-19 20:03] LABS: BASOPHILS % 0.3 % (0.0-1.0); EOSINOPHILS # (AUTO) 0.1 (0.0-0.4); EOSINOPHILS % 0.9 % (0.0-6.0); HEMATOCRIT 25.4 % (34.2-44.1); HEMOGLOBIN 7.2 g/dL (12.0-16.0); LYMPHOCYTES # (AUTO) 1.3 (1.0-3.2); LYMPHOCYTES % 18.7 % (18.0-39.1); MEAN CORPUSCULAR HEMOGLOBIN 26.2 pg (28-32); MEAN CORPUSCULAR HGB CONC 28.3 g/dL (31-35); MEAN CORPUSCULAR VOLUME 92.4 fL (81-99); MONOCYTES # (AUTO) 0.4 (0.2-0.8); MONOCYTES % 5.2 % (4.4-11.3); NEUTROPHILS # (AUTO) 5.1 (2.1-6.9); NEUTROPHILS % 74.3 % (38.7-80.0); PLATELET COUNT 237 x10e3/uL (140-360); RED BLOOD COUNT 2.75 x10e6/uL (3.6-5.1); WHITE BLOOD COUNT 6.79 x10e3/uL (4.8-10.8)
[2024-12-19 20:25] LABS: ALBUMIN 3.2 g/dL (3.5-5.0); ALBUMIN/GLOBULIN RATIO 0.7 (0.8-2.0); ANION GAP 13.1 mmol/L (8-16); BILIRUBIN,TOTAL 0.3 mg/dL (0.2-1.2); CALCIUM 9.4 mg/dL (8.4-10.2); CREATININE, SERUM 0.78 mg/dL (0.57-1.11); POTASSIUM 4.1 mmol/L (3.5-5.1); TOTAL PROTEIN 7.6 g/dL (6.5-8.1)
[2024-12-19 20:35] LABS: TROPONIN I 1.529 ng/mL (0-0.300)
[2024-12-19 23:57] VITALS: PULSE 90; RESP 17; TEMP 98; O2SAT 99
== END 2024-12-20 00:13 | disposition other institution (70) ==
LOC: ER 20:53
DX: R07.9 Chest pain, unspecified (principal); I21.4 Non-ST elevation (NSTEMI) myocardial infarction; R79.89 Other specified abnormal findings of blood chemistry; D64.9 Anemia, unspecified; R94.31 Abnormal electrocardiogram [ECG] [EKG]
CPT/HCPCS: 36415; 71045; 80053; 83690; 84484; 85025; 93005; 99284

== ENCOUNTER 2025-03-09 21:43 | Inpatient (IN) | payer MEDICARE, OTHER ==
[~2025-03-09] VITALS: Ht 154.9 cm; Wt 63.5 kg
[2025-03-09 21:43] VITALS: TEMP 97
[2025-03-09 22:33] LABS: BASOPHILS % 0.2 % (0.0-1.0); EOSINOPHILS % 0.7 % (0.0-6.0); LYMPHOCYTES % 24.3 % (18.0-39.1); MONOCYTES % 6.2 % (4.4-11.3); NEUTROPHILS % 67.7 % (38.7-80.0); RED CELL DISTRIBUTION WIDTH 15.1 % (11.7-14.4)
[2025-03-09] MEDS ORDERED: Morphine 4mg INJECTION 4 MG/ML INJ IV PRN (23:30)
[2025-03-09] MEDS ORDERED: ONDANSETRON HCL INJ 2MG/ML 2ML 2 MG/ML VIAL IV PRN (23:30)
[2025-03-09 23:58] LABS: EST GLOMERULAR FILTRATION RATE 79.0 ML/MIN (>=60)
[2025-03-10] VITALS (34 sets, daily range): BP systolic 82–124; BP diastolic 38–63; PULSE 80–95; RESP 6–25; TEMP 98–98.2; O2SAT 93–98
[2025-03-10] MEDS ORDERED: SODIUM CHLORIDE 0.9% 250ML 250 ML ONE (00:31)
[2025-03-10] MEDS: SODIUM CHLORIDE 0.9% 250ML 250 ML IV ONE (00:57)
[2025-03-10 09:13] LABS: BASOPHILS % 0.4 % (0.0-1.0); EOSINOPHILS % 1.8 % (0.0-6.0); LYMPHOCYTES % 30.8 % (18.0-39.1); MONOCYTES % 8.3 % (4.4-11.3); NEUTROPHILS % 58.3 % (38.7-80.0); RED CELL DISTRIBUTION WIDTH 15.7 % (11.7-14.4)
[2025-03-10 10:15] LABS: EST GLOMERULAR FILTRATION RATE 95.0 ML/MIN (>=60)
[2025-03-10 11:28] LABS: EOSINOPHILS % (MANUAL) 2 % (0-7); LYMPHOCYTES % (MANUAL) 19 % (19-48); MONOCYTES % (MANUAL) 6 % (3.4-9.0); NEUTROPHILS % (MANUAL) 70 % (40-74); PLATELET ESTIMATE ADEQUATE; PLATELET MORPHOLOGY COMMENT NORMAL; RBC MORPHOLOGY COMMENT NORMAL; REACTIVE LYMPHOCYTES 3
[2025-03-10] MEDS: IRON SUCROSE 100 MG in SODIUM CHLORIDE 0.9% 100 ML IV SCH (15:42)
[2025-03-10] MEDS ORDERED: DEXTROSE 50% SYRINGE 50 ML IV PRN ×2 (16:45)
[2025-03-10] MEDS: DEXAMETHASONE SOD PHOS 10 MG/1 ML VIAL IV ONE (19:42)
[2025-03-10] MEDS: DIPHENHYDRAMINE HCL INJ 50 MG/ML VIAL IV ONE (19:42)
[2025-03-10] MEDS: ACETAMINOPHEN 325 MG TAB PO ONE (19:43)
[2025-03-10] MEDS: GABAPENTIN 300 MG CAP PO SCH (20:10)
[2025-03-10] MEDS: SODIUM CHLORIDE 0.9% 250ML 250 ML ONE (20:11)
[2025-03-10] MEDS: INSULIN LISPRO 100 UNIT/1 ML 3ML VIAL SQ SCH (21:12)
[2025-03-10] MEDS: FUROSEMIDE INJ 10 MG/ML 2 ML VIAL IV PRN (23:33)
[2025-03-11] VITALS (45 sets, daily range): BP systolic 83–145; BP diastolic 43–93; PULSE 71–98; RESP 9–28; TEMP 97.8–98.1; O2SAT 92–99
[2025-03-11 05:31] LABS: BASOPHILS % 0.0 % (0.0-1.0); EOSINOPHILS % 0.0 % (0.0-6.0); LYMPHOCYTES % 21.1 % (18.0-39.1); MONOCYTES % 1.5 % (4.4-11.3); NEUTROPHILS % 76.2 % (38.7-80.0); RED CELL DISTRIBUTION WIDTH 15.9 % (11.7-14.4)
[2025-03-11 05:59] LABS: EST GLOMERULAR FILTRATION RATE 80.0 ML/MIN (>=60)
[2025-03-11] MEDS: ASCORBIC ACID 500 MG TAB PO SCH (08:07)
[2025-03-11] MEDS: EZETIMIBE 10 MG TAB PO SCH (08:07)
[2025-03-11] MEDS: FOLIC ACID 1 MG TAB PO SCH (08:07)
[2025-03-11] MEDS: SERTRALINE HCL 50 MG TAB PO SCH (08:07)
[2025-03-11] MEDS: SODIUM CHLORIDE 0.9% 250ML 250 ML ONE (11:03)
[2025-03-12] VITALS (18 sets, daily range): BP systolic 87–111; BP diastolic 40–69; PULSE 68–92; RESP 6–22; TEMP 98–98.1; O2SAT 95–99
[2025-03-12 06:35] LABS: BASOPHILS % 0.4 % (0.0-1.0); EOSINOPHILS % 2.3 % (0.0-6.0); LYMPHOCYTES % 32.4 % (18.0-39.1); MONOCYTES % 3.8 % (4.4-11.3); NEUTROPHILS % 57.9 % (38.7-80.0); RED CELL DISTRIBUTION WIDTH 16.0 % (11.7-14.4)
[2025-03-12] MEDS: DIPHENHYDRAMINE HCL INJ 50 MG/ML VIAL IV ONE (07:32)
[2025-03-12] MEDS: ACETAMINOPHEN 325 MG TAB PO STA (07:32)
[2025-03-12] MEDS: DEXAMETHASONE SOD PHOS 10 MG/1 ML VIAL IV ONE (07:32)
[2025-03-12] MEDS: SODIUM CHLORIDE 0.9% 250ML 250 ML IV ONE (07:33)
[2025-03-12] MEDS ORDERED: LIDOCAINE HCL 2% LOCAL INJ 5 ML SDV VIAL INJ ONE (11:50)
[2025-03-12] MEDS ORDERED: PROPOFOL IV EMULSION 10 MG/ML 20 ML VIAL ONE (11:50)
[2025-03-12] MEDS: SUCRALFATE 1 GM TAB PO SCH (16:23)
[2025-03-13 03:14] VITALS: BP 105/50; PULSE 76; RESP 19; TEMP 98.1; O2SAT 99
[2025-03-13 10:25] VITALS: BP 110/58; PULSE 86; RESP 19; TEMP 97.9; O2SAT 92
[2025-03-13 10:36] VITALS: PULSE 79; RESP 19; O2SAT 92
[2025-03-13 11:00] VITALS: BP 107/57; PULSE 85; RESP 19; O2SAT 94
== END 2025-03-13 12:51 | disposition home or self-care (01) | DRG 377 ==
LOC: ER 21:47 → ERHOLD 23:48 → ICU 03-10 14:35
PROVIDERS: ADMIT Internal Medicine; ATTEND Internal Medicine
PROC: 30233N1 Transfusion of Nonautologous Red Blood Cells into Peripheral Vein, Percutaneous Approach (ICD-10-PCS; 2025-03-10)
PROC: 0W3P8ZZ Control Bleeding in Gastrointestinal Tract, Via Natural or Artificial Opening Endoscopic (ICD-10-PCS; principal; 2025-03-12 13:00)
DX: K55.21 Angiodysplasia of colon with hemorrhage (principal); R57.8 Other shock; D62 Acute posthemorrhagic anemia; E11.9 Type 2 diabetes mellitus without complications; I10 Essential (primary) hypertension; E78.5 Hyperlipidemia, unspecified; K21.9 Gastro-esophageal reflux disease without esophagitis; R53.81 Other malaise; Z90.49 Acquired absence of other specified parts of digestive tract; Z79.84 Long term (current) use of oral hypoglycemic drugs; Z79.85 Long-term (current) use of injectable non-insulin antidiabetic drugs
CPT/HCPCS: 36415; 43239; 71045; 80048; 80053; 82550; 82948; 83690; 83880; 84484; 85025; 86850; 86900; 86920; 93005; 93306; 94799; 96372; 99252; 99284; J1100; J1200; J1756; J1938; J2003; J2470; J7050; P9016

== ENCOUNTER → 2025-04-08 | Outpatient (REF) | payer MEDICARE | LOC: DX 10:02 | PROVIDERS: ATTEND Internal Medicine | DX: M81.0 Age-related osteoporosis without current pathological fracture (principal) | CPT/HCPCS: 77080 ==

== ENCOUNTER 2025-05-05 15:26 | Observation (INO) | payer MEDICARE, OTHER ==
[~2025-05-05] VITALS: Ht 154.9 cm; Wt 63.5 kg
[2025-05-05] VITALS (11 sets, daily range): BP systolic 95–108; BP diastolic 44–75; PULSE 95–104; RESP 14–20; TEMP 98.5–98.8; O2SAT 99–100
[2025-05-05 16:20] LABS: BASOPHILS % 0.2 % (0.0-1.0); EOSINOPHILS % 2.0 % (0.0-6.0); LYMPHOCYTES % 26.4 % (18.0-39.1); MONOCYTES % 7.7 % (4.4-11.3); NEUTROPHILS % 63.2 % (38.7-80.0); RED CELL DISTRIBUTION WIDTH 15.8 % (11.7-14.4)
[2025-05-05 16:37] LABS: EST GLOMERULAR FILTRATION RATE 86.0 ML/MIN (>=60)
[2025-05-05] MEDS: INSULIN REGULAR, HUMAN 100 UNIT/1 ML IV ONE (17:14)
[2025-05-05] MEDS ORDERED: ACETAMINOPHEN 325 MG TAB PO PRN (17:30)
[2025-05-05] MEDS ORDERED: LIDOCAINE 4% PATCH TP PRN (17:30)
[2025-05-05] MEDS ORDERED: ONDANSETRON HCL INJ 2MG/ML 2ML 2 MG/ML VIAL IV PRN (17:30)
[2025-05-05] MEDS ORDERED: ALBUTEROL/IPRATROPIUM 3 ML NEB NEB PRN (17:30)
[2025-05-05] MEDS ORDERED: DEXTROSE 50% SYRINGE 50 ML IV PRN ×2 (17:30)
[2025-05-05] MEDS ORDERED: DOCUSATE SODIUM 100 MG CAP PO PRN (17:30)
[2025-05-05] MEDS ORDERED: POTASSIUM CHLORIDE 20 MEQ TAB CR PO PRN (17:30)
[2025-05-05] MEDS ORDERED: BENZONATATE 100 MG CAP PO PRN (17:30)
[2025-05-05] MEDS ORDERED: HYDRALAZINE HCL 20 MG/ML VIAL IV PRN (17:30)
[2025-05-05] MEDS ORDERED: DIPHENHYDRAMINE HCL 25 MG CAP PO PRN (17:30)
[2025-05-05] MEDS ORDERED: SIMETHICONE 80 MG CHEW PO PRN (17:30)
[2025-05-05 17:51] LABS: INR 0.99
[2025-05-05] MEDS ORDERED: D3-5000125 MCG PO (18:41)
[2025-05-05] MEDS ORDERED: ULTRAM 50MG50 MG PO (18:41)
[2025-05-05] MEDS ORDERED: METOPROLOL SUCC25 MG PO (18:41)
[2025-05-05] MEDS ORDERED: LASIX20 MG PO (18:41)
[2025-05-05] MEDS ORDERED: ONDANSETRON ODT4 MG PO (18:41)
[2025-05-05] MEDS ORDERED: ROSUVASTATIN CA40 MG PO (18:41)
[2025-05-05] MEDS ORDERED: VOLTAREN ARTHRI20 GM TD (18:41)
[2025-05-05] MEDS ORDERED: PANTOPRAZOLE SO40 MG PO (18:41)
[2025-05-05] MEDS ORDERED: MELATONIN 5 MG TABLET PO PRN (21:00)
[2025-05-05] MEDS: INSULIN LISPRO 100 UNIT/1 ML 3ML VIAL SQ SCH (21:29)
[2025-05-06] VITALS (12 sets, daily range): BP systolic 93–125; BP diastolic 45–60; PULSE 51–97; RESP 16–20; TEMP 97.8–98.8; O2SAT 97–100
[2025-05-06 06:13] LABS: BASOPHILS % 0.5 % (0.0-1.0); EOSINOPHILS % 4.1 % (0.0-6.0); LYMPHOCYTES % 36.2 % (18.0-39.1); MONOCYTES % 7.8 % (4.4-11.3); NEUTROPHILS % 50.9 % (38.7-80.0); RED CELL DISTRIBUTION WIDTH 16.0 % (11.7-14.4)
[2025-05-06 06:34] LABS: EST GLOMERULAR FILTRATION RATE 99.0 ML/MIN (>=60)
[2025-05-06] MEDS: SODIUM CHLORIDE 0.9% 250ML 250 ML IV ONE ×2 (07:31→20:56)
[2025-05-06] MEDS: SODIUM CHLORIDE 0.9% 250ML 250 ML ONE (07:32)
[2025-05-06] MEDS: PANTOPRAZOLE SOD 40 MG TABEC PO SCH (08:51)
[2025-05-07] VITALS (7 sets, daily range): BP systolic 102–128; BP diastolic 49–58; PULSE 81–93; RESP 16–20; TEMP 97–98; O2SAT 96–100
[2025-05-07] MEDS: SODIUM CHLORIDE 0.9% 250ML 250 ML IV ONE (05:12)
[2025-05-07] MEDS: SODIUM CHLORIDE 0.9% 250ML 250 ML ONE (05:12)
[2025-05-07 06:52] LABS: BASOPHILS % 0.6 % (0.0-1.0); EOSINOPHILS % 4.3 % (0.0-6.0); LYMPHOCYTES % 31.0 % (18.0-39.1); MONOCYTES % 8.5 % (4.4-11.3); NEUTROPHILS % 55.3 % (38.7-80.0); RED CELL DISTRIBUTION WIDTH 15.1 % (11.7-14.4)
[2025-05-07 07:10] LABS: EST GLOMERULAR FILTRATION RATE 97.0 ML/MIN (>=60)
[2025-05-07] MEDS: EZETIMIBE 10 MG TAB PO SCH (07:54)
[2025-05-07] MEDS: FOLIC ACID 1 MG TAB PO SCH (07:54)
[2025-05-07] MEDS: SERTRALINE HCL 50 MG TAB PO SCH (07:54)
[2025-05-07] MEDS: CRESTOR 10MG PO SCH (07:54)
[2025-05-07] MEDS ORDERED: GABAPENTIN 300 MG CAP PO SCH (21:00)
== END 2025-05-07 13:45 | disposition home or self-care (01) ==
LOC: ER 15:33 → ERHOLD 16:50 → MED/SURG3 17:42
PROVIDERS: ADMIT Internal Medicine; ATTEND Internal Medicine
DX: D50.0 Iron deficiency anemia secondary to blood loss (chronic) (principal); K55.20 Angiodysplasia of colon without hemorrhage; I10 Essential (primary) hypertension; E11.9 Type 2 diabetes mellitus without complications; Z79.84 Long term (current) use of oral hypoglycemic drugs; E78.5 Hyperlipidemia, unspecified; F41.8 Other specified anxiety disorders
CPT/HCPCS: 36415 ×3; 36430 ×2; 80048 ×3; 82948 ×3; 85014; 85018; 85025 ×3; 85610; 86850; 86900; 86920 ×2; 94799 ×3; 99252; 99284; G0378 ×3; J2470 ×2; J7050 ×2; P9016 ×2

== ENCOUNTER → 2025-05-12 | Day surgery (SDC) | payer MEDICARE, OTHER ==
[2025-05-05 10:04] LABS: BASOPHILS % 0.5 % (0.0-1.0); EOSINOPHILS % 2.2 % (0.0-6.0); LYMPHOCYTES % 19.3 % (18.0-39.1); MONOCYTES % 7.5 % (4.4-11.3); NEUTROPHILS % 69.8 % (38.7-80.0); RED CELL DISTRIBUTION WIDTH 15.5 % (11.7-14.4)
[~2025-05-12] MED LIST changes: +D3-5000125 MCG PO; +LACTATED RINGER'S 1,000 ML ONE; +LASIX20 MG PO; +LIDOCAINE HCL 2% LOCAL INJ 5 ML SDV VIAL INJ ONE; +METOPROLOL SUCC25 MG PO; +ONDANSETRON HCL INJ 2MG/ML 2ML 2 MG/ML VIAL ONE; +ONDANSETRON ODT4 MG PO; +PROPOFOL IV EMULSION 10 MG/ML 20 ML VIAL ONE; +ROSUVASTATIN CA40 MG PO; +VOLTAREN ARTHRI20 GM TD
[2025-05-12 10:02] LABS: BASOPHILS % 0.7 % (0.0-1.0); EOSINOPHILS % 3.2 % (0.0-6.0); LYMPHOCYTES % 26.1 % (18.0-39.1); MONOCYTES % 6.5 % (4.4-11.3); NEUTROPHILS % 63.0 % (38.7-80.0); RED CELL DISTRIBUTION WIDTH 14.6 % (11.7-14.4)
[2025-05-12 12:08] VITALS: TEMP 97.8
[2025-05-12] MEDS: ONDANSETRON HCL INJ 2MG/ML 2ML 2 MG/ML VIAL IV ONE (12:30)
[2025-05-12 12:50] VITALS: BP 109/60; PULSE 83; RESP 18; O2SAT 99
== END | disposition home or self-care (01) ==
LOC: OR 09:02
PROVIDERS: ATTEND Internal Medicine Gastroenterology
DX: D50.0 Iron deficiency anemia secondary to blood loss (chronic) (principal); K31.819 Angiodysplasia of stomach and duodenum without bleeding; K44.9 Diaphragmatic hernia without obstruction or gangrene; K21.9 Gastro-esophageal reflux disease without esophagitis; Z86.0100 Personal history of colon polyps, unspecified; Z78.9 Other specified health status; I25.10 Atherosclerotic heart disease of native coronary artery without angina pectoris; I10 Essential (primary) hypertension; E11.9 Type 2 diabetes mellitus without complications; E78.5 Hyperlipidemia, unspecified; M19.041 Primary osteoarthritis, right hand; M19.042 Primary osteoarthritis, left hand; Z01.810 Encounter for preprocedural cardiovascular examination; Z01.812 Encounter for preprocedural laboratory examination; Z79.84 Long term (current) use of oral hypoglycemic drugs; Z79.899 Other long term (current) drug therapy; Z68.26 Body mass index [BMI] 26.0-26.9, adult; Z71.3 Dietary counseling and surveillance
CPT/HCPCS: 36415 ×2; 43270; 82948; 85025 ×2; 93005; C1889; J2003; J2405; J2704; J7121; 43235